=== PATIENT | female | born 1970 | race Caucasian/White ===

== ENCOUNTER 2019-05-16 16:48 | Emergency (ER) | payer BC, SELFPAY ==
[2019-05-16 16:52] VITALS: BP 148/78; PULSE 72; RESP 16; TEMP 36.6; O2SAT 99
--- NOTE | 2019-05-16 17:20 | DI.CT_ITS ---
EXAM: CT HEAD CERVICAL SPINE WO CLINICAL HISTORY: numbness right side of face with remy arm parasthes. TECHNIQUE: Noncontrast enhanced cranial CT was carried out according to the usual protocol. COMPARISON: No exams were available for comparison FINDINGS: There is no evidence of an intra or extra-axial hemorrhage. There is no evidence of a mass. The ve ntricles are intact there is no skull fracture. There is fairly significant mucoperiosteal thickenin g involving the ethmoid air cells and mild sphenoid and moderate frontal sinus involvement is noted. There is no evidence of a mastoid effusion. The soft tissues unremarkable. Summary no acute intracranial is identified. C-spine CT: There is mild lower cervical spondylosis with a mild disc bulge at C5-6 hours for reversa l of the normal cervical lordosis with focal kyphosis at C5-C6 there is no evidence of stenosis there is a mild disc bulge. Soft tissues are unremarkable. Apices are unremarkable. Summary mild mid to lower cervical spondylosis possibly on the basis of muscle spasm or positioning. IMPRESSION:
[2019-05-16] MEDS: Normal Saline 1,000 ML 1000 ML IV (17:37)
[2019-05-16 17:38] VITALS: RESP 16
--- NOTE | 2019-05-16 17:38 | ED.GENADUL_ITS ---
Discharge Plan Disposition Patient Disposition: HOME Condition: Good Discharge Details Chief Complaint: GenMedical Clinical Impression: Sinusitis, Disc disorder Primary Care Provider: Bonifacio Tubbs ED Provider: Carole Valera Home Meds and New Rx's Prescriptions: New doxycycline hyclate 100 mg capsule 100 mg PO BID Qty: 20 RF: 0 Flonase Sensimist 27.5 mcg/actuation spray,suspension 2 spray MATTHEW DAILY Qty: 5.9 RF: 0 No Action ibuprofen 200 MG capsule 200 mg PO DAILY RF: 0 cholecalciferol (vitamin D3) 1,000 UNIT tablet 1,000 unit PO DAILY RF: 0 Daily Multiple 1 EACH tablet 1 ea PO DAILY RF: 0 sulfamethoxazole-trimethoprim 1 TAB tablet 1 tab PO BID RF: 0 Discharge Instructions Instructions: Sinusitis (ED), Cervical Disc Herniation (ED) Additional Instructions: Use Tylenol or ibuprofen for discomfort. Use nasal saline rinses 3 times a day. 5 minutes after morning use the nasal saline rinse use Flonase prescribed. Use antibiotic as prescribed. Have very close follow-up with your primary care doctor as discussed. Your imaging studies reveal sinus inflammation in conjunction with a disc bulge in your neck. Please follow-up closely with her primary care doctor for these findings. As discussed return for any alarming, worsening, concerning or new or changing symptoms if needed sooner. Medical Decision Making Is a very pleasant 48-year-old woman with no significant medical history who presents to the ER for onset of right-sided facial numbness which began this morning at approximately 530. Patient denies associated facial pain. Patient reports in conjunction she has tingling in bilateral arms associated with some radiating pain into the forearms bilaterally. Patient does report intermittent neck pain and has had similar symptoms in her arms for the last several months. Patient was concerned with onset of facial numbness this morning. No associated headache or vision changes. Patient denies any dizziness. Patient does report general malaise and ill feeling with no measured fever. Reports mild fatigue. Denies recent tick bites. Patient denies any rash. No cough or upper r espiratory symptoms associated. On initial exam patient has a very benign neurologic exam. No weakness of the upper extremities. No cerebellar abnormalities as tested on neuro exam. Patient does have a horizontal nystagmus. Patient is afebrile, normal vital signs. 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 Emergency room work-up to include CAT scan of head and neck, labs including Lyme and TSH. Patient agrees with plan of care. Interpretation of EKG; normal axis, rate of 69, sinus rhythm. Reviewed with my attending Dr. Ramon Fox CT ultimately does reveal fairly significant mucoperiosteal thickening involving the ethmoid air cells and mild sphenoid and moderate frontal sinus involvement. No other mass or abnormalities identified on head CT. Patient also was noted to have mild mid and lower spondylolosis as well as a mild disc bulge at C5-6 with reversal of normal cervical lordosis. Focal kyphosis noted at C5-6 level. This is potential to cause patient's radiating pain into her arms. As patient has no obvious neurologic emergency symptoms at this time and symptoms have been ongoing for several months I do feels appropriate to follow-up with outpatient MRI. Regarding patient's right-sided facial numbness given the sinus inflammation noted on exam in conjunction with malaise and fatigue it is likely that patient has sinus infection which she has had in the past and she did report this was an initial concern. We did discuss the possibility of etiology of stroke given patient's right-sided facial numbness however it is very unlikely given her presentation in conjunction with bilateral numbness of the arms. She has no facial asymmetry at this time, clear speech and of benign neuro exam today. We discussed a more extensive evaluation although patient thinks this is unnecessary at this time and would prefer follow-up with her primary care doctor which I agree with. Patient will call for follow-up with PCP on Sunday. Precautions discussed at length. Lyme remains in the differential as cause of her malaise, fatigue and facial numbness, Lyme testing pending she will follow-up with her PCP as an outpatient. Doxycycline will be initiated for coverage of sinusitis as well as coverage of potential Lyme. The patient was stable and requested discharge. Prior to discharge, my usual and customary return precautions were reviewed with the patient - this included follow-up instructions and reasons to return to the Emergency Department if conditions worsens, does not improve as expected, or other new concerns arise. HPI General Date/Time Provider Initiated Documentation: 05/16/19 16:55 . HPI Narrative: Very pleasant 48-year-old patient presents for complaints of right facial numbness. Patient reports onset of symptoms at approximately 530 this morning. Patient felt normal last evening. Patient reports sensation of numbness but does have intact sensation to touch. Patient denies any facial pain or headache. Patient does report a history of migraine but this seems different. Patient does report occasional tingling in the right side of her face when having migraines but typically has associated headache and photophobia neither which she has at this time. Patient is also concerned as she has bilateral arm soreness and tingling. Denies focal weakness. Patient does report occasional neck pain. Patient reports neck pain and bilateral arm sensations for the last few months intermittently. Patient denies any obvious injury or trauma to the neck. 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 Patient is also complaining of malaise and fatigue in the last few days. No measured fever or chills. Eating and drink without difficulty. No upper respiratory symptoms. Denies concern of . No urinary urgency and frequency or dysuria. No bowel changes. Related Data Home Medications Medication Instructions Recorded Confirmed Daily Multiple 1 ea PO DAILY 10/20/15 05/16/19 cholecalciferol (vitamin D3) 1,000 unit PO DAILY 10/20/15 05/16/19 ibuprofen 200 mg PO DAILY 10/20/15 05/16/19 sulfamethoxazole-trimethoprim 1 tab PO BID 10/13/17 10/13/17 doxycycline hyclate 100 mg PO BID #20 cap 05/16/19 fluticasone furoate [Flonase 2 spray MATTHEW DAILY #5.9 ml 05/16/19 Sensimist] Previous Rx's Medication Instructions Recorded doxycycline hyclate 100 mg PO BID #20 cap 05/16/19 fluticasone furoate [Flonase 2 spray MATTHEW DAILY #5.9 ml 05/16/19 Sensimist] Allergies Allergy/AdvReac Type Severity Reaction Status Date / Time Penicillins Allergy Skin Rash Verified 10/13/17 16:56 sulfite Allergy Verified 10/13/17 16:56 food (kale) Allergy Severe Hives Uncoded 10/13/17 16:56 General Stated Complaint: GenMedical LYNDSEY: 2 Review of Systems Review of Systems ROS Unobtainable: All systems reviewed & are unremarkable except as noted in HPI and below Constitutional Constitutional: Denies chills, Reports fatigue, Denies fever(s), Denies headache(s), Reports malaise, Denies night sweats and Denies weakness Eyes Eyes: Denies blurry vision, Denies diplopia, Denies loss of peripheral vision, Denies loss of vision, Denies other visual disturbances and Denies photophobia ENT Ears, Nose, Mouth, and Throat: Denies abnormal hearing, Denies vertigo, Denies dizziness and Denies headache(s) Cardiovascular Cardiovascular: Denies syncope Respiratory Respiratory: Denies cough and Denies wheezing Musculoskeletal Musculoskeletal: Denies abnormal gait and Reports numbness Integumentary/Breasts Skin/Breast: Denies rash Neurologic Neurologic: Denies abnormal hearing, Denies abnormal movements, Denies abnormal speech, Denies abnormal gait, Denies behavioral changes, Denies confusion, Denies vertigo, Denies dizziness, Denies syncope, Denies headache(s), Denies focal weakness, Denies loss of vision, Reports numbness, Reports radicular pain and Denies weakness Psychiatric Psychiatric: Denies behavioral changes and Denies confusion Endocrine Endocrine: Reports fatigue Hematologic/Lymphatic Hematologic/Lymphatic: Denies easy bruising Allergic/Immunologic Allergic/Immunologic: Denies wheezing [facility] Surgical History (Updated 05/09/17 @ 12:59 by Emilee Joseph) Appendectomy (05/03/17) Social History Smoking/Tobacco Use Status: Never Alcohol Intake: current Alcohol Intake frequency: a few times a month Drug use: Never Substance use type: does not use Do you feel safe at home: Yes Do you feel safe in your relationship?: Yes History History Para 2 Hx # Term Pregnancies Multiple births Hx # Pregnancies Ectopic pregnancies AB induced Hx Number of Living Children AB spontaneous Exam Narrative Exam Narrative: CONST: Healthy appearing patient, in no acute distress. Well hydrated. Alert and alert. HENMT: Head nomocephalic, normal to inspection. Atraumatic. Hearing grossly normal. EYES: General normal appearance. Alignment normal. Eyelids normal. Conjunctiva normal. Mild horizontal nystagmus. No peripheral field loss NECK: Normal visual inspection. FROM. Trachea midline. No Midline tenderness. No cervical lymphadenopathy CHEST: Normal insepection of the chest. RESP: Normal respiratory effort. Speaking full sentences. No cough. No audible wheezing. No retractions. CARDIO: No JVD. No murmurs or rubs MUSCULOSKELETAL: Normal Gait. FROM of all extremities. SKIN: Normal. Dry. No rashes. NEURO: Alert and awake. Speech clear. Alert and oriented x 3. Speech is clear. Cranial nerves intact as tested III - XI. Normal Etybts-sr-qahs test. No pronator drift. Normal heel-schroeder test. Gait normal. Strength intact in all extremities. Sensation intact in all extremities. PSYCH: Normal affect. Cooperative. Course Vital Signs Vital signs: Vital Signs Temperature 36.6 C 05/16/19 16:52 Pulse 72 05/16/19 16:52 Respiratory Rate 16 05/16/19 16:52 Blood Pressure 148/78 H 05/16/19 16:52 Pulse Oximetry 99 05/16/19 16:52 Temperature 36.6 C 05/16/19 16:52 Temperature Source Skin 05/16/19 16:52 Pulse 72 05/16/19 16:52 Respiratory Rate 16 05/16/19 16:52 Respiratory Effort Non-Labored 05/16/19 16:55 Blood Pressure 148/78 H 05/16/19 16:52 Blood Pressure Position Sitting 05/16/19 16:52 Pulse Oximetry 99 05/16/19 16:52 Oxygen Delivery Method Room Air 05/16/19 16:52 Oxygen Flow Rate 0 05/16/19 16:52 Pain Level 0 05/16/19 16:52
[2019-05-16 17:42] LABS: Abs Immature Grans 0.01 k/cumm (0.0-0.09); Absolute Basophil Count 0.04 k/cumm (0.0-0.2); Absolute Lymphocyte Count 1.75 k/cumm (1.2-3.4); Absolute Monocyte Count 0.51 k/cumm (0.11-0.7); Absolute Neutrophil Count 5.35 k/cumm (1.2-6.7); Basophils % 0.5; Eosinophils % 2.5; HCT 43.9 % (36.0-46.0); HGB 14.9 g/dL (12.0-15.5); Immature Grans % 0.1; Lymphocytes % 22.3; Mean Corp. HGB Concentration 33.9 g/dL (32.0-36.0); Mean Corpuscular Hemoglobin 31.4 pg (27.0-33.0); Mean Corpuscular Volume 92.4 fL (80-95); Mean Platelet Volume 10.5 fL (8.0-11.0); Monocytes % 6.5; Neutrophils % 68.1; Platelet Count 262 x1000/uL (130-400); RBC 4.75 m/cumm (4.00-5.20); RBC Distribution Width 12.9 % (11.7-14.6); White Blood Cell Count 7.86 k/cumm (4.4-10.8)
[2019-05-16 18:58] LABS: ALT 21 U/L (14-59); AST 16 U/L (15-37); Albumin 3.5 g/dL (3.4-5.0); Alkaline Phosphatase 98 U/L (46-116); Anion Gap 10.5 mmol/L (3-11); BUN 13 mg/dL (7-18); Bilirubin, Total 0.3 mg/dL (0.2-1.0); CO2 24.5 mmol/L (21.0-32.0); CREATININE 0.81 mg/dL (0.55-1.02); Calcium 9.5 mg/dL (8.5-10.1); Chloride 107 mmol/L (98-107); Glucose 79 mg/dL (70-100); Potassium 3.4 mmol/L (3.5-5.1); Sodium 142 mmol/L (136-145); TSH 2.25 uIU/mL (0.36-3.74); Total Protein 7.5 g/dL (6.4-8.2)
--- NOTE | 2019-05-16 18:58 | DI.VRAD_ITS ---
PROCEDURE INFORMATION: Exam: CT Head without contrast Exam date and time: 05/16/2019 5:22 PM Clinical history: 48 years old, female; Numbness / parasthesia; Patient HX: Numbness right side of face and bilateral arm parastheses TECHNIQUE: Imaging protocol: Computed tomography of the head without contrast. COMPARISON: No relevant prior studies available. FINDINGS: Brain: Normal. No hemorrhage. Unremarkable white matter. No mass effect. Ventricles: Normal. No ventriculomegaly. Bones/joints: Unremarkable. No acute fracture. Sinuses: There is fairly significant mucoperiosteal thickening involving the ethmoid air cells with mild sphenoid and moderate frontal sinus involvement. Mastoid air cells: Visualized mastoid air cells are well aerated. Soft tissues: Unremarkable. IMPRESSION: No evidence for acute intracranial abnormality. PROCEDURE INFORMATION: Exam: CT Cervical Spine Without Contrast Exam date and time: 05/16/2019 5:22 PM Clinical history: 48 years old, female; Numbness / parasthesia; Patient HX: Numbness right side of face and bilateral arm parastheses TECHNIQUE: Imaging protocol: Computed tomography images of the cervical spine without contrast. COMPARISON: No relevant prior studies available. FINDINGS: Vertebrae: There is mid to lower cervical spondylosis with mild disc bulge C5-6. There is reversal of the normal cervical lordosis with focal kyphosis at the C5-6 level. There is no evidence for stenosis. There is mild disc bulge. Discs/Spinal canal/Neural foramina: See Vertebrae Finding. Soft tissues: Unremarkable. Lungs: Lung apices are normal. IMPRESSION: Mild mid and lower cervical spondylosis. Possible muscle spasm. COMMENT: Preliminary interpretation is based on receipt of 1963 image(s). A final report will be issued subsequently. Dictated and Authenticated by: Priyanka Tipton MD. Ordering:BARRINGTON Lam MD
[2019-05-16 19:23] VITALS: BP 139/73; PULSE 71; RESP 16; TEMP 37.2; O2SAT 99
--- NOTE | 2019-05-16 19:25 | NUR.NOTE ---
Nursing Note: LATRICE Valera in to discuss discharge plan with pt. IV removed, catheter intact.
[2019-05-16] MEDS: Doxycycline Hyclate 100 MG CAP (19:47)
[2019-05-19 10:15] LABS: Lyme Ab w Rflx to Lyme Confirm Positive
[2019-05-20 22:35] LABS: Anaplasma phagocytophilum Negative (Negative); B. miyamotoi PCR Negative (Negative); Babesia divergens/MO-1 Negative (Negative); Babesia duncani Negative (Negative); Babesia microti Negative (Negative); Ehrlichia chaffeensis Negative (Negative); Ehrlichia ewingii/canis Negative (Negative); Ehrlichia muris eauclairensis Negative (Negative)
[2019-05-21 15:33] LABS: IgG Band(s) SEE COMMENTS kDa; IgG Immunoblot Negative; IgM Band(s) SEE COMMENTS kDa; IgM Immunoblot Negative; Immunoblot Interpretation SEE COMMENTS
== END 2019-05-16 19:50 | disposition home or self-care (01) ==
PROVIDERS: Emergency Provider Physician Assistant; PCP Family Medicine
DX: J01.80 Other acute sinusitis (principal); M50.90 Cervical disc disorder, unspecified, unspecified cervical region
CPT/HCPCS: 36415; 80053; 86617; 87798; 96360; 96361; 99284; 70450; 72125; 84443; 85025; 86618

== ENCOUNTER 2019-10-15 09:55 | Outpatient (REF) | payer BC, SELFPAY ==
[2019-10-16 05:31] LABS: Vitamin D 25 Total 41.2 ng/ml (30-100)
== END 2019-10-15 10:15 ==
LOC: NCHCN 09:55
PROVIDERS: PCP Nurse Practitioner; Visit Provider Nurse Practitioner
DX: Z13.21 Encounter for screening for nutritional disorder (principal)
CPT/HCPCS: 82306

== ENCOUNTER 2020-04-25 17:18 | Emergency (ER) | payer BC, SELFPAY ==
[2020-04-25 17:24] VITALS: BP 155/99; PULSE 85; RESP 20; TEMP 36.3; O2SAT 99
--- NOTE | 2020-04-25 17:47 | ED.GENADUL_ITS ---
Discharge Plan Disposition Patient Disposition: HOME Condition: Good Discharge Details Clinical Impression: Contusion of right thigh Primary Care Provider: Sudha Crespo ED Provider: Saul Romero Home Meds and New Rx's Prescriptions: Continued ibuprofen 200 MG capsule 200 mg PO DAILY RF: 0 Daily Multiple 1 EACH tablet 1 ea PO DAILY RF: 0 Discharge Instructions Instructions: Contusion in Adults (ED) Additional Instructions: At this time there is no evidence of hematoma in your thigh or your hip. Your symptoms are inconsistent with a fracture currently. Please Artie wrap the area to help keep down swelling, you can take 1000 mg of Tylenol every 6 hours and 800 mg of ibuprofen every 6 hours as needed for pain. Please continue to ice it tonight and tomorrow morning. And then transition to using heat/warmth. Use the crutches to help give your leg a break. It will be notably sore for the next week. If you notice any large mass, worsening pain or lack of improvement of pain over the next week please return immediately for reassessment. If you notice any worsening of your symptoms, or any new symptoms such as vomiting, diarrhea, fever, chills, shortness of breath, chest pain, numbness, weakness, or fainting , please return immediately to the emergency department for reevaluation. Please follow up with your primary care provider as soon as possible for reassessment and reevaluation. As always, it was a pleasure participating in your medical care today. Referrals: Sudha Crespo [Primary Care Provider] - Medical Decision Making 49-year-old female with no significant past medical history presents today for evaluation of contusion to the right thigh. The patient states that 1 hour ago she was working at her house when 6 sheets of sheet rock fell and hit her right thigh, and then slid down them. She was not trapped under the sheet rock, she was able to get out immediately. She immediately put Arnica on it and ice. She denies any other associated numbness or tingling. No significant pain with ambulation. She did not fall hit her head or have trauma to any other component. No other complaints at this time. No other modifying factors. Physical exam demonstrates no evidence of significant hematoma, decrease in str ength, lack of sensation or signs of trauma to the knee or femur. She has 5 out of 5 strength for flexion and extension at the knee and hip. Bedside limited ultrasound shows no evidence of fluid collection hematoma or other concerning abnormality. With good strength and sensation, no evidence of significant tenderness signs were small component of the distal tenderness at the rectus femoris and no bony tenderness no pain with ambulating I see no indication for radiographic imaging at this time. I did discuss x-ray options with the patient, she agrees on holding off of the time being. At this time signs and symptoms are clinically consistent with contusion, and inconsistent with hematoma or osseous fracture. Will give instructions for Tylenol, Motrin, Artie wrap, ice and crutches. Discussed red flags which to return. I have extensively reviewed the treatment plan and discharge instructions with the patient. I have addressed all patient concerns at this time. The patient was made aware of what symptoms to monitor for that would warrant a return to the emergency department. Discussed the plan with the patient, they demonstrate verbal understanding and agreement with our assessment and plan at this time. HPI General Date/Time Provider Initiated Documentation: 04/25/20 17:30 . HPI Narrative: 49-year-old female with no significant past medical history presents today for evaluation of contusion to the right thigh. The patient states that 1 hour ago she was working at her house when 6 sheets of sheet rock fell and hit her right thigh, and then slid down them. She was not trapped under the sheet rock, she was able to get out immediately. She immediately put Arnica on it and ice. She denies any other associated numbness or tingling. No significant pain with ambulation. She did not fall hit her head or have trauma to any other component. No other complaints at this time. No other modifying factors. Related Data Home Medications Medication Instructions Recorded Confirmed Daily Multiple 1 ea PO DAILY 10/20/15 04/25/20 ibuprofen 200 mg PO DAILY 10/20/15 04/25/20 Allergies Allergy/AdvReac Type Severity Reaction Status Date / Time Penicillins Allergy Skin Rash Verified 04/25/20 17:26 sulfite Allergy Verified 04/25/20 17:26 food (kale) Allergy Severe Hives Uncoded 04/25/20 17:26 General Stated Complaint: Orthopedic LYNDSEY: 4 Review of Systems All systems reviewed & are unremarkable except as noted in HPI and below [facility] Surgical History Appendectomy (05/03/17) Social History Smoking/Tobacco Use Status: Never Alcohol Intake: current Alcohol Intake frequency: a few times a month Drug use: Never Substance use type: does not use Do you feel safe at home: Yes Do you feel safe in your relationship?: Yes History History Para 2 Hx # Term Pregnancies Multiple births Hx # Pregnancies Ectopic pregnancies AB induced Hx Number of Living Children AB spontaneous Exam Narrative Exam Narrative: 1.Const: Well-nourished, Well-developed, appearing stated age 2.Eyes: PERRL, no conjunctival injection, and symmetrical lids. 3.ENT: Atraumatic external nose and ears. Moist MM. Neck: Symmetric, trachea midline, No thyromegaly. 4.CVS: +S1/S2, No murmurs or gallops. Peripheral pulses 2+ and equal in all extremities. Brisk capillary refill in all extremities. 5.RESP: Unlabored respiratory effort. Clear to auscultation bilaterally. No wheezes rales or rhonchi 6.GI: Soft, Nontender/Nondistended, No hepatosplenomegaly. No guarding or rebound. 7.MSK: Normocephalic, Extremities w/o deformity. No cyanosis or clubbing, Normal movement of all extremities. Patient's right thigh demonstrates mild tenderness at the mid distal aspect of the rectus femoris. No evidence of significant swelling hematoma or mass. No tenderness to the lateral aspects of the thigh whatsoever. Bedside limited ultrasound demonstrates no evidence of large fluid collection, large hematoma, or other abnormality. The knee is stable to varus, valgus, and anterior drawer stress. No deformity. Patellar grind test is negative. Conrad test is negative for pain. Patient is able to walk without difficulty. No edema or warmth to the joint. No ttp to the patella, tibial plateau, or fibular head. Patient demonstrates 5 out of 5 strength for flexion and extension of the knee, as well as flexion and extension of the hip. 8.Skin: Warm, Dry. No rashes or lesions. 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 Sensation grossly intact, no focal neurologic deficits. 10.Psych: (AAO) x3. Appropriate mood and affect Course Vital Signs Vital signs: Vital Signs Temperature 36.3 C L 04/25/20 17:24 Pulse 85 04/25/20 17:24 Respiratory Rate 20 04/25/20 17:24 Blood Pressure 155/99 H 04/25/20 17:24 Pulse Oximetry 99 04/25/20 17:24 Temperature 36.3 C L 04/25/20 17:24 Temperature Source Skin 04/25/20 17:24 Pulse 85 04/25/20 17:24 Respiratory Rate 20 04/25/20 17:24 Respiratory Effort Non-Labored 04/25/20 17:28 Blood Pressure 155/99 H 04/25/20 17:24 Blood Pressure Position Sitting 04/25/20 17:24 Pulse Oximetry 99 04/25/20 17:24 Oxygen Delivery Method Room Air 04/25/20 17:24 Oxygen Flow Rate 0 04/25/20 17:24 Pain Level 1 04/25/20 17:24
== END 2020-04-25 18:04 | disposition home or self-care (01) ==
LOC: ER 18:51
PROVIDERS: Emergency Provider Student in an Organized Health Care Education/Training Program; PCP Nurse Practitioner
DX: S70.11XA Contusion of right thigh, initial encounter (principal); W20.8XXA Other cause of strike by thrown, projected or falling object, initial encounter
CPT/HCPCS: 99283; E0114

== ENCOUNTER 2021-12-25 16:02 | Emergency (ER) | payer BC, SELFPAY ==
[2021-12-25 16:12] VITALS: BP 140/81; PULSE 74; RESP 14; TEMP 36.2; O2SAT 97
--- NOTE | 2021-12-25 16:30 | DI.CT_ITS ---
Exam(s) CT ABDOMEN PELVIS WO EXAM: CT ABDOMEN PELVIS WO CLINICAL HISTORY: LUQ abd pain. TECHNIQUE: Imaging Protocol: Axial computed tomography images with coronal and sagittal reformatted images were created and reviewed CONTRAST MATERIAL: Intravenous: none Oral: None COMPARISON: CT ABD PELVIS WITH CONTRAST from 05/03/2017 FINDINGS: VISUALIZED LUNG BASES: No nodules nor pleural effusions evident. ABDOMEN: There is no ascites. LIVER: There is a 1 centimeter cyst in the upper aspect left hepatic lobe which is unchanged from 201 7. No other focal findings in the liver evident on this noninfused study. Liver size is normal. GALLBLADDER/BILIARY: No obvious gallbladder pathology. CBD is not dilated. PANCREAS: No evidence of pancreatic mass nor dilatation of the pancreatic duct. SPLEEN: Spleen size normal. No intrasplenic lesions. Small splenule medial to the spleen is unchang ed from 2017. ADRENALS: There are no significant adrenal masses. KIDNEYS:No cysts evident. No solid renal masses. No calculi nor hydronephrosis. . ABDOMINAL AORTA: Abdominal aorta is not enlarged. LYMPH NODES: There is no retroperitoneal nor paraaortic adenopathy. ABDOMINAL WALL: No evidence of significant anterior abdominal wall nor inguinal hernia. GI: There is no evidence of bowel obstruction, free air, nor abscess. PELVIS: LYMPH NODES: There is no intrapelvic nor inguinal adenopathy. GI: The appendix is surgically absent.No evidence of significant sigmoid diverticular disease. URINARY BLADDER: No calculi nor obvious masses evident REPRODUCTIVE: Surgical clips are seen on the posterior myometrium of the uterus. OSSEOUS: No significant osseous lesions. No fractures. IMPRESSION: 1. Compared to 05/03/2017 there has been interval appendectomy. No evidence of bowel obstruction nor abscess. No free fluid. 2. Again noted are surgical clips associated with the posterior wall of the uterus adjacent to the ur inary bladder. No obvious abnormality in the bladder. No abnormal adnexal findings. 3. Stable 1 cm cyst in the left hepatic lobe, unchanged from 2017. No new focal hepatic lesions evid ent on this noninfused study. RADIATION DOSE DELIVERED: 920mGy.cm Total DLP DATA REPOSITORY: All CT scans at this facility are submitted to the National Radiology Data Registry (NRDR) Dose Index Registry (DIR) with the [employer] (A[employer]). RADIATION OPTIMIZATION: All CT scans at this facility use at least one of these dose optimization te chniques: automated exposure control; mA and/or kV adjustment per patient size (includes targeted exa ms where dose is matched to clinical indication); or iterative reconstruction.
--- NOTE | 2021-12-25 16:31 | ED.GENADUL_ITS ---
Discharge Plan Disposition Patient Disposition: HOME Condition: Stable Discharge Details Clinical Impression: Localized swelling of left lower extremity, Abdominal pain Primary Care Provider: Marian Hardin ED Provider: Yesenia Muniz Home Meds and New Rx's Prescriptions: Continued ibuprofen 200 MG capsule 400 mg PO DAILY PRN Daily Multiple 1 EACH tablet 1 ea PO DAILY Discharge Instructions Instructions: Leg Edema (ED), Abdominal Pain (ED) Additional Instructions: Please return as directed by diagnostic imaging for an ultrasound. You may return to the ER for results. Keep your leg elevated is much as possible. CT shows no evidence for obstruction or infection no acute abnormality at this time. Lab work is all largely within normal limits. Follow up with primary care provider in 3-5 days. Return to ED sooner if any worsening or concerns. Increase oral fluids. Please take Tylenol or Ibuprofen with food every 4-6 hours as needed for pain and swelling. Referrals: Marian Hardin [Primary Care Provider] - 5 days Discharge Data Discharge Date/Time-TO BE ENTERED AT DEPARTURE: 12/25/21 18:14 Medical Decision Making 51-year-old female presents to the ER with chief complaint of left lower extremity swelling and tingling which began yesterday and has since somewhat resolved. She reports she still does have some tingling in the extremity. She denies any known injuries. Patient is also complaining of some left upper quadrant abdominal pain. At this time work-up ordered including CBC, CMP, D-dimer, urinalysis IV normal saline [address] abdomen pelvis without contrast. Differential diagnosis includes but not limited to DVT, transient edema, bug bite, constipation, gastroenteritis, bowel obstruction I did discuss limited ultrasound availability at this time. Will order ultrasound as an outpatient have patient return for the results tomorrow. She verbalizes understanding and is in agreement with the plan. CBC within normal limits, D-dimer 334 which is within normal limits CMP largely within normal limits. Magnesium slightly high at 2.8 lipase within normal limits urinalysis shows no evidence for urinary tract infection no leukocytes no nitrites. CT results noted below. Small hiatal hernia no acute abnormality noted. Will discuss follow-up for outpatient ultrasound with patient to return tomorrow with and discharge instructions. This text was generated using avVentaation system, please disregard any oddities of phrase or misspellings. Imaging Data Radiologic Study: Imaging: CT Scan Radiologist's impression: COMPARISON: CT ABD PELVIS WITH CONTRAST 05/03/2017 11:38 AM FINDINGS: Liver: Small left lobe low-density hepatic lesion again seen consistent with c yst. New lines small hiatal hernia. Gallbladder and bile ducts: Gallbladder partially contracted. Pancreas: Normal. No ductal dilation. Spleen: Normal. No splenomegaly. Adrenal glands: Normal. No mass. Kidneys and ureters: Normal. No hydronephrosis. Stomach and bowel: Unremarkable. No obstruction. No mucosal thickening. Appendix: Appendix surgically absent. Intraperitoneal space: Unremarkable. No free air. No significant fluid collection. Vasculature: Unremarkable. No abdominal aortic aneurysm. Lymph nodes: Unremarkable. No enlarged lymph nodes. Urinary bladder: See Reproductive finding. Reproductive: There is some postsurgical change with the uterus straight over the bladder, possible pexy. Clinical correlation requested. Uterine appearances are otherwise unremarkable. Bladder within normal limits. Bones/joints: Unremarkable. No acute fracture. Soft tissues: Unremarkable. IMPRESSION: No acute abnormality seen to account for symptoms. Thank you for allowing us to participate in the care of your patient. Dictated and Authenticated by: Priyanka Tipton MD [facility] General Mode of arrival: ambulatory . Date/Time Provider Initiated Documentation: 12/25/21 16:16 . Limitations to Documentation: no limitations . Information obtained by: patient, RN notes reviewed and old records reviewed . HPI Narrative: 51-year-old female presents to the ER with chief complaint of left lower extremity swelling and tingling which began yesterday and has since somewhat resolved. She reports she still does have some tingling in the extremity. She denies any known injuries. She reports that she was sitting at a cabin when her foot started swelling. She also reports that her noted some discoloration in the bottom of her foot. She also endorses some left upper quadrant abdominal pain, constipation x2 days and just overall not feeling well. She denies any nausea vomiting diarrhea no fever chills no chest pain or shortness of breath. Surgical history includes appendectomy, she is postmenopausal. She denies any recent long trips in a car plane, she does not take control and is not a smoker. Related Data Home Medications Medication Instructions Recorded Confirmed ibuprofen 200 mg capsule 400 mg PO DAILY PRN 10/20/15 12/25/21 multivitamin-ferrous 1 ea PO DAILY 10/20/15 12/25/21 fumarate-folic acid 18 mg-400 mcg tablet (Daily Multiple) Allergies Allergy/AdvReac Type Severity Reaction Status Date / Time Penicillins Allergy Skin Rash Verified 12/25/21 16:15 sulfite Allergy Verified 12/25/21 16:15 food (kale) Allergy Severe Hives Uncoded 12/25/21 16:15 General Stated Complaint: Orthopedic LYNDSEY: 3 Review of Systems All systems reviewed & are unremarkable except as noted in HPI and below Constitutional Constitutional: Reports as per HPI Cardiovascular Cardiovascular: Denies chest pain and Denies dyspnea Respiratory Respiratory: Denies dyspnea Gastrointestinal Gastrointestinal: Reports abdominal pain (Intermittent), Reports change in bowel habits, Reports constipation, Denies diarrhea, Denies nausea and Denies vomiting Genitourinary Genitourinary: Denies difficulty voiding and Denies dysuria Musculoskeletal Musculoskeletal: Reports as per HPI, Reports tingling and Reports other (Swelling, since resolved) Neurologic Neurologic: Reports tingling PFSH All Active Problems (Updated 12/25/21 @ 18:03 by Yesenia Muniz) Acute appendicitis with localized peritonitis (Acute) Localized swelling of left lower extremity (Acute) Abdominal pain (Acute) Surgical History Appendectomy (05/03/17) Social History Smoking/Tobacco Use Status: Never Smoking risk assessment performed?: Yes Alcohol Intake: current Alcohol Intake frequency: a few times a month Drug use: Never Substance use type: does not use Do you feel safe at home: Yes Do you feel safe in your relationship?: Yes History History Para 2 Hx # Term Pregnancies Multiple births Hx # Pregnancies Ectopic pregnancies AB induced Hx Number of Living Children AB spontaneous Exam Narrative Exam Narrative: Constitutional: Alert and oriented x3. Appears stated age. Normal body habitus. Head: Normocephalic, no trauma. Eyes: Pupils PERRL, Red reflex noted, EOM's intact. Eyelids symmetrical without lesions, discharge, or swelling. ENT: Bilateral TM's WNL, External ear normal to inspection, no mastoid TTP, swelling, or erythema, Nasal turbinates WNL, no nasal discharge. Normal dentition, Posterior pharynx WNL, no exudate. Chest: RRR, Normal S1, S2, distal pulses intact. Resp: Lungs clear to auscultation bilaterally, no wheezes, rales, or rhonchi. Abdomen: Soft, non-distended, Normoactive bowel sounds all 4 quads. Musculoskeletal: Normal gait, 5/5 strength to all four extremities. Negative Homans' sign, no significant swelling or erythema noted to her left calf or foot. No wounds or deformity noted. Skin: No suspicious rashes or lesions. Capillary refill less than 2 sec. Neurologic: Cranial nerves II-XII intact. Alert and oriented x 3. Motor: No deficits noted. Sensory: Intact bilaterally all 4 extremities. Reflexes: DTR's intact bilaterally.. Hematologic/Lymphatic: No ecchymosis, no lymphadenopathy. Course Vital Signs Vital signs: Vital Signs Temperature 36.2 C L 12/25/21 16:12 Pulse 74 12/25/21 16:12 Respiratory Rate 14 12/25/21 16:12 Blood Pressure 140/81 12/25/21 16:12 Pulse Oximetry 97 12/25/21 16:12 Temperature 36.2 C L 12/25/21 16:12 Temperature Source Skin 12/25/21 16:12 Pulse 74 12/25/21 16:12 Respiratory Rate 14 12/25/21 16:12 Respiratory Effort 12/25/21 16:16 Blood Pressure 140/81 12/25/21 16:12 Blood Pressure Position Sitting 12/25/21 16:12 Pulse Oximetry 97 12/25/21 16:12 Oxygen Delivery Method Room Air 12/25/21 16:12 Oxygen Flow Rate 0 12/25/21 16:12 Pain Level 1 12/25/21 16:12
--- NOTE | 2021-12-25 16:50 | NUR.NOTE ---
Faxed to [facility] a request for LLE venous doppler US; left lower extremity tingling and swelling to be done LAURITA and follow up in the ED. Qing Ramon
[2021-12-25] MEDS: Normal Saline 1,000 ML 1000 ML IV (16:52)
[2021-12-25 16:54] LABS: Abs Immature Grans 0.01 10^3/uL (0.0-0.06); Absolute Basophil Count 0.04 10^3/uL (0.0-0.2); Absolute Eosinophil Count 0.07 10^3/uL (0.0-0.7); Absolute Lymphocyte Count 1.06 10^3/uL (1.2-3.4); Absolute Monocyte Count 0.32 10^3/uL (0.1-0.8); Absolute Neutrophil Count 4.96 10^3/uL (1.2-6.7); Basophils % 0.6; Eosinophils % 1.1; HCT 42.1 % (36.0-46.0); HGB 13.5 g/dL (11.2-15.7); Immature Grans % 0.2; Lymphocytes % 16.4; MCH 29.7 pg (27.0-33.0); MCHC 32.1 % (32.0-36.0); MCV 93 fL (80-95); MPV 10.5 fL (8.0-11.0); Neutrophils % 76.7; Platelet Count 246 10^3/uL (130-400); RBC 4.55 10^6/uL (3.93-5.22); RDW 12.5 % (11.7-14.6); RDW-SD 42.4 fL; WBC 6.46 10^3/uL (4.4-10.8)
[2021-12-25 17:07] LABS: ALT 23 U/L (14-59); AST 17 U/L (15-37); Albumin 3.8 g/dL (3.4-5.0); Alkaline Phosphatase 136 U/L (46-116); Anion Gap 5.6 mmol/L (3-11); BUN 13 mg/dL (7-18); Bilirubin, Total 0.4 mg/dL (0.2-1.0); CO2 27.4 mmol/L (21.0-32.0); CREATININE 0.8 mg/dL (0.55-1.02); Chloride 108 mmol/L (98-107); Glucose 98 mg/dL (74-106); Lipase 92 U/L (73-393); Magnesium 2.8 mg/dL (1.8-2.4); Potassium 3.9 mmol/L (3.5-5.1); Sodium 141 mmol/L (136-145); Total Protein 7.4 g/dL (6.4-8.2)
[2021-12-25 17:24] LABS: D-Dimer 334 ng/mlFEU (<500)
[2021-12-25 17:28] LABS: Bilirubin Negative (Negative); Blood Negative (Negative); Clarity Sl Cloudy (Clear); Glucose Negative (Negative); Ketones Negative (Negative); Leukocyte Esterase Negative (Negative); Nitrite Negative (Negative); Specific Gravity 1.015 (1.005-1.025); Urobilinogen 0.2 EU/dL (Up TO 0.2); pH 6.5 (5-8)
--- NOTE | 2021-12-25 17:56 | DI.VRAD_ITS ---
PROCEDURE INFORMATION: Exam: CT Abdomen And Pelvis Without Contrast Exam date and time: 12/25/2021 5:09 PM Age: 51 years old Clinical indication: Other: Luq abd pain TECHNIQUE: Imaging protocol: Computed tomography of the abdomen and pelvis without contrast. COMPARISON: CT ABD PELVIS WITH CONTRAST 05/03/2017 11:38 AM FINDINGS: Liver: Small left lobe low-density hepatic lesion again seen consistent with cyst. New lines small hiatal hernia. Gallbladder and bile ducts: Gallbladder partially contracted. Pancreas: Normal. No ductal dilation. Spleen: Normal. No splenomegaly. Adrenal glands: Normal. No mass. Kidneys and ureters: Normal. No hydronephrosis. Stomach and bowel: Unremarkable. No obstruction. No mucosal thickening. Appendix: Appendix surgically absent. Intraperitoneal space: Unremarkable. No free air. No significant fluid collection. Vasculature: Unremarkable. No abdominal aortic aneurysm. Lymph nodes: Unremarkable. No enlarged lymph nodes. Urinary bladder: See Reproductive finding. Reproductive: There is some postsurgical change with the uterus straight over the bladder, possible pexy. Clinical correlation requested. Uterine appearances are otherwise unremarkable. Bladder within normal limits. Bones/joints: Unremarkable. No acute fracture. Soft tissues: Unremarkable. IMPRESSION: No acute abnormality seen to account for symptoms. Dictated and Authenticated by: Priyanka Tipton MD. Ordering:MED Patterson MD
== END 2021-12-25 18:14 | disposition home or self-care (01) ==
PROVIDERS: Emergency Provider Registered Nurse Emergency; PCP Nurse Practitioner Family
DX: R22.42 Localized swelling, mass and lump, left lower limb (principal); R10.12 Left upper quadrant pain
CPT/HCPCS: 36415; 80053; 83690; 96360; 99284; 74176; 81003; 83735; 85025; 85379

== ENCOUNTER 2021-12-27 10:24 | Emergency (ER) | payer BC, SELFPAY ==
--- NOTE | 2021-12-27 10:35 | ED.GENADUL_ITS ---
Discharge Plan Disposition Patient Disposition: HOME Condition: Stable Discharge Details Clinical Impression: Leg swelling Primary Care Provider: Marian Hardin ED Provider: Yesenia Muniz Home Meds and New Rx's Prescriptions: No Action ibuprofen 200 MG capsule 400 mg PO DAILY PRN Daily Multiple 1 EACH tablet 1 ea PO DAILY Discharge Instructions Instructions: Edema (ED) Additional Instructions: The Ultrasound is negative for DVT or blood clot. Please Follow up with your Primary care Provider. Continue to elevate your leg as needed. Referrals: Marian Hardin [Primary Care Provider] - 1 week Medical Decision Making US RLE: FINDINGS: There is no evidence of intraluminal thrombus and there is normal compression and augmentation demonstrated within the common femoral vein, femoral vein, and popliteal vein. In the ipsilateral calf the interrogated veins also exhibit normal compression/ augmentation properties. The ipsilateral saphenofemoral junction is patent. IMPRESSION: 1. No evidence of DVT in the RIGHT lower extremity. Discussed results with patient verbalized understanding. Discussed home care and follow-up with PCP. Patient discharged in hemodynamically stable condition. This text was generated using SCREEMOation system, please disregard any oddities of phrase or misspellings. HPI General Mode of arrival: ambulatory . Date/Time Provider Initiated Documentation: 12/27/21 10:31 . Limitations to Documentation: no limitations . Information obtained by: patient and old records reviewed . HPI Narrative: Patient was seen in ED by myself on December 25, 2021 for left lower extremity swe lling and tingling which had resolved upon arrival. She returns today for results of ultrasound which are negative for DVT. Patient reports last night she had some cramping in her left calf denies any additional swelling or any other complaints. Did discuss results with her she verbalizes understanding. Discussed home care to increase fluids and follow-up with PCP. Related Data Home Medications Medication Instructions Recorded Confirmed ibuprofen 200 mg capsule 400 mg PO DAILY PRN 10/20/15 12/25/21 multivitamin-ferrous 1 ea PO DAILY 10/20/15 12/25/21 fumarate-folic acid 18 mg-400 mcg tablet (Daily Multiple) Allergies Allergy/AdvReac Type Severity Reaction Status Date / Time Penicillins Allergy Skin Rash Verified 12/25/21 16:15 sulfite Allergy Verified 12/25/21 16:15 food (kale) Allergy Severe Hives Uncoded 12/25/21 16:15 General LYNDSEY: 3 Review of Systems All systems reviewed & are unremarkable except as noted in HPI and below PFSH All Active Problems (Updated 12/27/21 @ 10:32 by Yesenia Muniz) Acute appendicitis with localized peritonitis (Acute) Localized swelling of left lower extremity (Acute) Abdominal pain (Acute) Leg swelling (Acute) Surgical History Appendectomy (05/03/17) Social History Smoking/Tobacco Use Status: Never Smoking risk assessment performed?: Yes Alcohol Intake: current Alcohol Intake frequency: a few times a month Drug use: Never Substance use type: does not use Do you feel safe at home: Yes Do you feel safe in your relationship?: Yes History History Para 2 Hx # Term Pregnancies Multiple births Hx # Pregnancies Ectopic pregnancies AB induced Hx Number of Living Children AB spontaneous Exam Narrative Exam Narrative: Constitutional: Alert and oriented x3. Appears stated age. Normal body habitus. Head: Normocephalic, no trauma. Musculoskeletal: Normal gait, 5/5 strength to all four extremities. Skin: No suspicious rashes or lesions. Capillary refill less than 2 sec. Neurologic: Cranial nerves II-XII intact. Alert and oriented x 3. Motor: No deficits noted. Sensory: Intact bilaterally all 4 extremities. Reflexes: DTR's intact bilaterally.. Hematologic/Lymphatic: No ecchymosis, no lymphadenopathy.
== END 2021-12-27 11:10 | disposition home or self-care (01) ==
PROVIDERS: Emergency Provider Registered Nurse Emergency; PCP Nurse Practitioner Family
DX: R22.42 Localized swelling, mass and lump, left lower limb (principal)

== ENCOUNTER 2022-01-23 16:32 | Outpatient (REF) | payer BC, SELFPAY ==
[2022-01-23 17:40] LABS: HCT 41.3 % (36.0-46.0); HGB 13.4 g/dL (11.2-15.7); MCH 29.8 pg (27.0-33.0); MCHC 32.4 % (32.0-36.0); MCV 92 fL (80-95); MPV 11.4 fL (8.0-11.0); Platelet Count 235 10^3/uL (130-400); RBC 4.49 10^6/uL (3.93-5.22); RDW 12.9 % (11.7-14.6); RDW-SD 43.6 fL; WBC 4.47 10^3/uL (4.4-10.8)
[2022-01-23 17:43] LABS: ESR 22 mm/hr (0-20)
[2022-01-23 18:57] LABS: Hemoglobin A1C 5.8 % (<5.7)
[2022-01-23 19:16] LABS: ALT 27 U/L (14-59); AST 19 U/L (15-37); Alkaline Phosphatase 122 U/L (46-116); Anion Gap 9.6 mmol/L (3-11); BUN 13 mg/dL (7-18); Bilirubin, Total 0.5 mg/dL (0.2-1.0); CO2 24.4 mmol/L (21.0-32.0); CREATININE 0.8 mg/dL (0.55-1.02); Calcium 10.3 mg/dL (8.5-10.1); Chloride 108 mmol/L (98-107); Folate 14.3 ng/mL (8.6-20.0); Glucose 93 mg/dL (74-106); Potassium 4.2 mmol/L (3.5-5.1); Sodium 142 mmol/L (136-145); TSH (W/Ref FT4) 2.39 uIU/mL (0.36-3.74); Total Protein 7.7 g/dL (6.4-8.2); Vitamin B12 563 pg/mL (193-986)
[2022-01-25 10:26] LABS: Hepatitis C Ab w Rflx HCV PCR Negative (Negative)
[2022-01-25 10:34] LABS: HIV-1/2 Ag & Ab Screen Negative (Negative)
== END 2022-01-23 16:33 | disposition home or self-care (01) ==
LOC: NCHCN 16:32
PROVIDERS: PCP Nurse Practitioner Family; Visit Provider Nurse Practitioner Family
DX: R20.2 Paresthesia of skin (principal); R74.8 Abnormal levels of other serum enzymes; Z11.59 Encounter for screening for other viral diseases; Z11.4 Encounter for screening for human immunodeficiency virus [HIV]; R73.09 Other abnormal glucose
CPT/HCPCS: 80053; 85027; 85652; 86803; 87389; 82607; 82746; 83036; 84443; 86140

== ENCOUNTER 2022-01-23 16:47 | Outpatient (REF) | payer BC, SELFPAY | END 2022-01-23 16:48 | disposition home or self-care (01) | LOC: NCHCN 16:47 | PROVIDERS: PCP Nurse Practitioner Family; Visit Provider Nurse Practitioner Family ==

== ENCOUNTER 2022-03-13 11:22 | Outpatient (REF) | payer BC, SELFPAY ==
[2022-03-13 15:24] LABS: Alkaline Phosphatase 114 U/L (46-116); Calcium 10.5 mg/dL (8.5-10.1); FREE T4 1.01 ng/dL (0.76-1.46)
[2022-03-13 15:35] LABS: T4 8.6 ug/mL (4.7-13.3)
== END 2022-03-13 11:23 | disposition home or self-care (01) ==
LOC: LBN 11:22
PROVIDERS: Visit Provider Nurse Practitioner Family
DX: R74.8 Abnormal levels of other serum enzymes (principal); E83.52 Hypercalcemia; L65.9 Nonscarring hair loss, unspecified
CPT/HCPCS: 82310; 84075; 84436; 84439

== ENCOUNTER → 2022-03-22 01:37 | Outpatient (CLI) | payer BC, SELFPAY ==
--- OUTSIDE RECORDS SUMMARY | 2022-03-01 00:32 | XMS_ITS | Encounter Summary ---
:1970 Author Organization [facility] Address [facility] [place] [address] Care Team Providers Name Role Phone HeavendarronSudha oneal APRN Primary Care Provider Reason for Visit Reason Comments Follow-up F/U to PT Encounter Details Date Type Department Care Team Description 06/03/2021 [facility] Dann Guzman dd, MD Myofascial pain; at [facility] Cervical spondylosis [facility] [place] [address] [place] [address] [phone] Social History Tobacco Use Types Packs/Day Years Used Date Never Smoker Smokeless Tobacco: Never Used Alcohol Use Standard Drinks/Week Comments Yes 2.5 (1 standard drink = 0.6 oz pure alco hol) glass wine Alcohol Habits Answer Date Recorded How often do you have a drink containing alcohol? Not asked How many drinks containing alcohol do you have on a typical Not asked day when you are drinking? How often do you have six or more drinks on one occasion? No t asked Comment: glass wine 06/30/2014 Sex Assigned at Date Recorded Not on file documented as of this encounter Last Filed Vital Signs Vital Sign Reading Time Taken Comments Blood Pressure 116/60 06/03/2021 3:53 PM EDT Pulse 64 06/03/2021 3:53 PM EDT Temperature - - Respiratory Rate - - Oxygen Saturation - - Inhaled Oxygen Concentration - - Weight 70.3 kg (155 lb) 06/03/2021 3:53 PM EDT Height 157.5 cm (5' 2) 06/03/2021 3:53 PM EDT Body Mass Index 28.35 06/03/2021 3:53 PM EDT documented in this encounter Progress Notes Alan Guzman MD - 06/03/2021 4:00 PM EDT Interim history: The patient returns for the first time since the visit of 02/22/2021. She canceled multiple follow-upappointments here since that time. She has been attending outpatient physical therapy at a facility connected with [facility]. She has been feeling much better and no longer experiences stabbing pain in the neck and upper thoracic region. She reports improved upper extremity strength and notes that she is no longer fearful of neck range of motion. She is transitioning to acommunity-based gym program. The patient has no pain at present. Recent symptoms have been limited to subjective pressure in the left upper trapezius. She reports no upper extremity pain radiation and no pain with shoulder range of motion. The patient finds that neck retraction exercises, in particular, have been most helpful in controlling her symptoms. Objective: BP 116/60 Pulse 64 Ht 157.5 cm (5' 2) Wt 70.3 kg (155 lb) BMI 28.35 kg/m?? The patient is seated comfortably and in no apparent distress. No pain behaviors are observed duringtoday's evaluation. Gait is normal. Neck is markedly protracted. Active cervical flexion 30 degrees, extension 60 degrees. There is no pain with cervical range of motion. Active range of motion of the shoulders is within normal limits and is painless. Neck is nontender to palpation. There is tenderness over left upper trapezius. No tenderness is appreciated throughout parascapular musculature. Motor: Right lower traps 4-4+/5. Upper extremity motor examination otherwise 5/5 throughout. Sensation: Intact to light touch throughout the upper extremities. Muscle stretch reflexes: 2+ bilaterally for biceps, triceps and brachioradialis. Assessment: Encounter Diagnoses Name Primary? Myofascial pain ??? Cervical spondylosis The patient is responding very well to outpatient PT treatment. She reports a marked reduction in pain. She demonstrates slowly improving body/postural awareness. The home exercise program has been effective in helping her to manage her chronic pain symptoms. I have encouraged the patient to continue the current treatment program. I anticipate a transition to the home exercise program over the next few weeks to allow for consolidation of the home program. The patient will follow up here on an as-needed basis. Should axial neck pain symptoms recur and increase over time, consideration can be given to diagnostic cervical medial branch blocks/RFA. Plan: 1. Continue PT treatment. 2. Follow-up here as needed. Alan Guzman MD, MS 06/03/2021 documented in this encounter Plan of Treatment Not on filedocumented as of this encounter Visit Diagnoses Diagnosis Myofascial pain Mylagia and myositis, unspecified Cervical spondylosis Cervical spondylosis without myelopathy documented in this encounter Care Teams Sole Assessor Relationship Specialty Start Date End Date Sudha Crespo APRN PCP - General Family Medicine 07/18/17 [place] [address] documented as of this encounter
--- OUTSIDE RECORDS SUMMARY | 2022-03-01 00:32 | XMS_ITS | Encounter Summary ---
:1970 Author Organization [facility] Address [address] [facility] [address] [place] [address] Care Team Providers Name Role Phone Sudha Crespo APRN Primary Care Provider Encounter Details Date Type Department Care Team Description 02/22/2021 [place] [facility] [place]zman, Cervicalgia; [address] [facility] [address] [place] Cervical spondylosis [facility] [id number] [place] [phone] [place] [id number] Social History Tobacco Use Types Packs/Day Years [...] on file documented as of this encounter Medications at Time of Discharge Medication Sig Dispensed Refills Start Date End Date calcium carbonate/vitamin D3 Take 1 capsule by 0 (VITAMIN D-3 ORAL) mouth daily. cyclobenzaprine (Flexeril) 5 1 tablet as needed. 0 01/03/2021 mg Tablet RARELY Ibuprofen 200 mg Capsule Take 400 mg by 0 016 mouth as needed. Multivitamins Tablet, Take by mouth. 0 Chewable Calcium 500 mg Tablet Take by mouth. 0 documented as of this encounter Plan of Treatment Not on filedocumented as of this encounter Procedures Procedure Name Priority Date/Time Associated Diagnosis Comme nts XR CERVICAL SPINE 2 Routine 02/22/2021 4:13 PM Cervicalg ia Results for this OR 3 VIEWS EDT Cervical spondylosis procedu re are in the results section. documented in this encounter Results XR Cervical Spine 2 or 3 Views (02/22/2021 4:13 PM EDT) Anatomical Region Laterality Modality C-spine N/A Digital Radiography Specimen (Source) Anatomical Location Collection Method / Collectio n Time Received Time / Laterality Volume Impressions 02/22/2021 5:29 PM EDT 1. ??No significant degenerative disc disease or spondylosis. 2. ??Gradual reversal of the normal cerv ical lordosis, which may be on the basis of positioning/muscle strain. 3. 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 Thank you for letting us participate in the care of this patient. ??If you are a health care provider and have any questi ons regarding this report, please contact the number below. ??For patients who have questions please contact the health wild animal caretaker that requested your imaging first. ? Electronically signed by: Vanessa Vigil MD, [facility] ([phone]), at 02/22/2021 5:29 PM Narrative 02/22/2021 5:29 PM EDT EXAMINATION: XR CERVICAL SPINE 2 OR 3 VIEWS CLINICAL HISTORY: Cervical spondylosis Chronic axial neck pain TECHNIQUE: 2 views of the cervical spine: Upright A P and lateral radiograph COMPARISON: None FINDINGS: C1-C7 visualized on the lateral radiogra ph, suboptimal visualization of the cervicothoracic junction due to overlyin g soft tissues. Additionally, suboptimal visualization of the odontoid and body o f the dens on the AP view due to overlying osseous structures. No prevertebral soft tissue swelling. Th ere is gradual reversal of the normal cervical lordosis centered at C5-C6. No acute fracture or subluxation is identified. The visualized intervertebra l disc spaces appear maintained. No significant osteophytosis. There is sugg estion of at least partial fusion of the posterior elements of C2 and C3. The vis ualized lung apices appear clear. Procedure Note Vanessa Vigil MD - 02/22/2021Formatt ing of this note might be different from the original. EXAMINATION: XR CERVICAL SPINE 2 OR 3 EWS CLINICAL HISTORY: Cervical spondylosis Chronic axial neck pain TECHNIQUE: 2 views of the cervical spine: Upright A P and lateral radiograph COMPARISON: None FINDINGS: C1-C7 visualized on the lateral radiogra ph, suboptimal visualization of the cervicothoracic junction due to overlyin g soft tissues. Additionally, suboptimal visualization of the odontoid and body o f the dens on the AP view due to overlying osseous structures. No prevertebral soft tissue swelling. Th ere is gradual reversal of the normal cervical lordosis centered at C5-C6. No acute fracture or subluxation is identified. The visualized intervertebra l disc spaces appear maintained. No significant osteophytosis. There is sugg estion of at least partial fusion of the posterior elements of C2 and C3. The vis ualized lung apices appear clear. IMPRESSION 1. No significant degenerative disc dise ase or spondylosis. 2. Gradual reversal of the normal cervic al lordosis, which may be on the basis of positioning/muscle strain. 3. Apparent partial fusion of the distilling department supervisor ior elements of C2 and C3, which may be on a congenital basis. Thank you for letting us participate in the care of this patient. If you are a health care provider and have any questi ons regarding this report, please contact the number below. For patients w ho have questions please contact the health wild animal caretaker that requested your imaging first. Electronically signed by: Vanessa Vigil MD, [facility] ([phone]), at 02/22/2021 5:29 PM Alan Guzman MD IMG DX ORDERABLES documented in this encounter Visit Diagnoses Diagnosis Cervicalgia Cervical spondylosis Cervical spondylosis without myelopathy documented in this encounter Care Teams Fruit Picker Machine Operator Relationship Specialty Start Date End Date Sudha Crespo APRN PCP - General Family Medicine 07/18/17 [address] [place] [address] documented as of this encounter
--- OUTSIDE RECORDS SUMMARY | 2022-03-01 00:32 | XMS_ITS | Encounter Summary ---
:1970 Author Organization [facility] [place] [address] Care Team Providers Name Role Phone Sudha Crespo APRN Primary Care Provider Reason for Referral Physical Therapy (Routine) - Specialty Diagnoses / Procedures Referred By Contact Refer red To Contact Physical Therapy Diagnoses Cervicalgia Myofascial pain Cervical spondylosis Scapular dyskinesis [place] [address] Referral ID Status Reason Start Date Expiration Date Visits V isits Requested Authorized [id number] Evaluate and 02/22/2021 08/21/2021 12 12 Treat Non PCP Reason for Visit Reason Comments Neck Pain Back Pain Consultation (Routine) - Closed Specialty Diagnoses / Procedures Referred By Contact Refer red To Contact [facility] Diagnoses Cervicalgia Spine- neck pain/ no new imaging/ Has tried PT Sudha Crespo, [facility] [employer] Spine [address] [place] [address] [place] [phone] Phone: Fax: Referral ID Status Reason Start Date Expiration Date Visits V isits Requested Authorized [id number] Closed Consult, Test 01/03/2021 07/06/2021 6 [facility] PCP Updated and/or Approved Encounter Details Date Type Department Care Team Description 02/22/2021 Office Visit [facility] Dann Guzman dd, MD Cervicalgia; at [facility] Myofascial pain; [facility] Cervical spondylosis; [address] [address] Scapular dyskinesis JO[place] [place] [phone] (Work) [phone] Social History Tobacco Use Types Packs/Day Years [...] Sign Reading Time Taken Comments Blood Pressure 133/78 02/22/2021 2:06 PM EDT Pulse 71 02/22/2021 2:06 PM EDT Temperature - - Respiratory Rate - - Oxygen Saturation 95% 02/22/2021 2:06 PM EDT Inhaled Oxygen Concentration - - Weight 72.6 kg (160 lb) 02/22/2021 2:06 PM EDT Height 157.5 cm (5' 2) 02/22/2021 2:06 PM EDT Body Mass Index 29.26 02/22/2021 2:06 PM EDT documented in this encounter Progress Notes Alan Guzman MD - 02/22/2021 2:00 PM EDT Chief Complaint Patient presents with ??? Neck Pain ??? Back Pain Subjective: Carmelina Arroyo is a 50 y.o. female who presents for Physical Medicine and Rehabilitation consultation,at the request of Sudha Crespo APRN. She reports primary symptoms of pain and pressure in lower cervical to upper thoracic regions. The symptoms are most marked in bilateral upper trapezius and haveleft- sided predominance. She reports pain in these regions with transitional movements in and out ofsitting. Water pressure on the area can result in the development of local [id number] sensation. The patient also notes that massage of the upper extremities can be painful. Onset of symptoms: Approximately three years ago, gradual onset. 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 The frequency and intensity of pain have increased over time. Pain characteristics: Constant, aching and sore to sharp in quality. Pain is currently graded as 3-4/10 in intensity. Exacerbating factors: Picking up objects from the floor, weeding, heavy lifting, bilateral neck rotation and overhead activity. Alleviating factors: Ibuprofen and massage. The patient denies upper extremity pain radiation. She can experience non- contiguous pain at the thoracolumbar junction with overhead activity. The patient denies upper extremity numbness, tingling, focal upper extremity weakness or gait/balance impairment. She gives a history of chronic stress urinary incontinence. Current treatment: None. The patient had a 2-month course of physical therapy ending in October 2019. 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 She is aware of ergonomic design principles, but has never had a formal ergonomic assessment of her workspace. She reports fear of triggering pain by activity. She has been managing her symptoms through activityrestriction. Additional somatic symptoms include headache pain. This is generally been left- sided, but is otherwise difficult to localize. Clinical materials reports reviewed: 1. Clinical office note of Priyanka Crespo APRN, 01/03/2021. The patient was seen for neck pain with left-sided predominance. She gave a history of activity- related cervicalgia. CT scan from 2019 was reviewed as showing mild lower cervical spondylosis with mild disc bulge and kyphosis at C5-C6. PT treatment was recommended, but was declined by the patient. Spine consultation was planned. Past Medical History: Diagnosis Date ??? Anxiety ??? Menorrhagia ??? Urinary tract bacterial infections Past Surgical History: Procedure Laterality Date ??? APPENDECTOMY ??? SECTION x2 ??? DILATION AND CURETTAGE OF UTERUS x2 Current Outpatient Medications on File Prior to Visit Medication Sig Dispense Refill ??? calcium carbonate/vitamin D3 (VITAMIN D-3 ORAL) Take 1 capsule by mouth daily. ??? cyclobenzaprine (Flexeril) 5 mg Tablet 1 tablet as needed. RARELY ??? Ibuprofen 200 mg Capsule Take 400 mg by mouth 2 times daily. ??? Multivitamins Tablet, Chewable Take by mouth. ??? Calcium 500 mg Tablet Take by mouth. No current facility-administered medications on file prior to visit. Allergies Allergen Reactions ??? Kale ??? Penicillins Other reaction(s): Skin Rash ??? Sulfite Review of Systems: As above. Objective: BP 133/78 Pulse 71 Ht 157.5 cm (5' 2) Wt 72.6 kg (160 lb) SpO2 95% BMI 29.26 kg/m?? The patient is seated comfortably and in no apparent distress. Gait and station: Normal. There is no difficulty performing bilateral heel or toe walking. Neck is protracted. There is marked bilateral shoulder protraction. Cervical motion: Active flexion limited to 15 degrees. Active extension 75 degrees, associated with left superomedial parascapular to central cervicothoracic junction pain at end range. Bilateral lateral cervical flexion is mild to moderately restricted. Mild restriction is noted in rightly cervical rotation. Mild restrictions are noted in bilateral shoulder flexion and abduction, right greater than left andin internal and external rotation, right greater than left, when tested from the abducted position. Right scapulothoracic rhythm is impaired. Impingement signs are negative at the shoulders. Palpation: Pain is elicited at 6/18 defined tender points. There is no focal tenderness to palpationin the midline cervical or thoracic spines. Tenderness and increased muscle tension are noted over left posterior cervical strap musculature, bilateral upper trapezius and left serratus anterior. Palpation of the latter produces left lower extremity pain radiation. There is additional tenderness over right pectoralis and bilateral anterior subacromial spaces and bicipital tendons. There is tenderness and increased muscle tension over left biceps, triceps, extensor carpi radialis and flexor carpi radialis. Palpation of the latter produces pins and needle sensation in ipsilateral small finger. There is tenderness and increased muscle tension over right biceps, extensor carpi radia lis and flexor carpi radialis. Palpation of the latter results in pins and needle sensation in ipsilateral small finger. Motor: Bilateral lower traps 4 -/5. Upper extremity motor examination otherwise 5/5 throughout. Sensation: There is a nondermatomal decrease in sensation to light touch throughout left hand. Sensation is decreased to light touch in the posterior aspect of the left arm. 2+ bilaterally for biceps, triceps and brachioradialis. Tone normal throughout the upper extremities. MMuscle stretch reflexes: Chinchilla's reflex absent in the upper extremities. Spurling test negative bilaterally. Assessment: Encounter Diagnoses Name Primary? Cervicalgia ??? Myofascial pain ??? Cervical spondylosis ??? Scapular dyskinesis The patient is a 50-year-old female who presents with chronic axial cervicothoracic pain. There are no radicular symptoms and no clear-cut radicular signs on examination to support the presence of cervical radicular process. According to the primary care records, cervical CT two years ago demonstrated mild spondylotic changes at C5-C6. I cannot exclude a facet-mediated component to the patient's axial pain symptoms. Today's examination demonstrates altered posture and alignment through neck and shoulders, mildly impaired range of motion at the shoulders, right greater than left, parascapular weakness, impaired right scapulothoracic rhythm and bilateral shoulder bursitis. These findings suggest postural and myofascial components to the patient's pain symptoms. Upper and lower extremity sensory symptoms can be produced through soft tissue palpation, suggesting the presence of possible myofascial pain syndrome. I have explained my findings and impressions in detail to the patient. I recommend cervical radiographs to assess bony alignment and the current extent of spondylotic change. I also recommend outpatient PT treatment and have explained the rationale for such treatment to the patient in detail. After our discussion, she has agreed to proceed. Prescription has been written for postural jew, active range of motion and stretch to neck and shoulder girdles, myofascial therapy to the upper traps and parascapulars, jew of normal bilateral scapulothoracic rhythm, anti- inflammatory modalities as needed to the shoulder bursae and progression to cervical and parascapular stabilization and strengthening. Consideration may be given to diagnostic cervical medial branch blocks and radiofrequency ablation, depending on the response to PT treatment and the further evolution of the patient's symptoms and examination. Consideration will be given to orthopedic shoulder consultation if shoulder pain and dysfunction persist, despite PT treatment. Plan: 1. Outpatient PT treatment. A prescription has been provided to the patient for treatment in her local area. 2. Follow-up with me in 8 weeks during PT treatment. The consultation request of Sudha Crespo APRN is greatly appreciated. Total time spent on date of encounter = 68 minutes. Alan Guzman MD, MS 02/22/2021 documented in this encounter Plan of Treatment Scheduled Referrals Name Type Priority Associated Diagnoses Order S chedule Referral to Outpatient Referral Routine Cervicalgia Ordered: Physical Therapy Myofascial pain 02/22/2021 Cervical spondyl osis Scapular dyskinesis documented as of this encounter Results XR Cervical Spine 2 [...] who have questions please contact the health clinical care manager that requested your imaging first. ? Electronically signed by: Vanessa Vigil MD, [facility] ([phone]), at 02/22/2021 5:29 PM Narrative 02/22/2021 5:29 [...] strain. 3. 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 Thank you for letting us participate in the care of this patient. If you are a health care provider and have any questi ons regarding this report, please contact the number below. For patients w ho have questions please contact the health clinical care manager that requested your imaging first. Electronically signed by: Vanessa Vigil MD, [facility] ([phone]), at 02/22/2021 5:29 PM Alan Guzman MD IMG DX ORDERABLES documented in this encounter Visit Diagnoses Diagnosis Cervicalgia Myofascial pain Mylagia and myositis, unspecified Cervical spondylosis Cervical spondylosis without myelopathy Scapular dyskinesis Lack of coordination Cervicalgia Cervical spondylosis Cervical spondylosis without myelopathy documented in this encounter Care Teams Environmental Web Crawler Relationship Specialty Start Date End Date Sudha Crespo APRN PCP - General Family Medicine 07/18/[address] [place] [address] [place] [address] documented as of this encounter
--- OUTSIDE RECORDS SUMMARY | 2022-03-01 00:32 | XMS_ITS | Clinical Summary ---
:1970 Author Organization [facility] [place] [address] Care Team Providers Name Role Phone Zak Sudha LYON Primary Care Provider Allergies Active Allergy Reactions Severity Noted Date Comments [place]rose 12/06/2017 Penicillins 04/25/2020 Other reaction( s): Skin Rash Sulfite 04/25/2020 Medications Medication Sig Dispensed Refills Start Date End Date Status Multivitamins Tablet, Take by mouth. 0 Active Chewable Calcium 500 mg Tablet Take by mouth. 0 Active calcium Take 1 capsule 0 Activ e carbonate/vitamin D3 by mouth daily. (VITAMIN D-3 ORAL) cyclobenzaprine 1 tablet as 0 01/03/2021 A ctive (Flexeril) 5 mg Tablet needed. RARELY Ibuprofen 200 mg Capsule Take 400 mg by 0 10/20/2015 Active mouth as needed. Active Problems Problem Noted Date Hematuria 12/06/2017 Bladder pain 12/06/2017 Nevus 09/25/2014 Family History Medical History Relation Comments Seizure Disorder Cousin Seizure Disorder Daughter Hyperlipidemia Father Type 2 Diabetes Father Type 2 Diabetes Mother Seizure Disorder Son Breast Cancer Neg Hx Colorectal Cancer Neg Hx Ovarian Cancer Neg Hx Pancreatic Cancer Neg Hx Uterine Cancer Neg Hx Relation Status Comments Cousin Daughter Father Mother Son Social History Tobacco Use Types Packs/Day Years [...] Assigned at Date Recorded Not on file Last Filed Vital Signs Vital Sign Reading Time Taken Comments Blood Pressure 116/60 06/03/2021 3:53 PM EDT Pulse 64 06/03/2021 3:53 PM EDT Temperature 36.8 ??C (98.2 ??F) 12/27/2017 9:29 AM EDT Respiratory Rate - - Oxygen Saturation 95% 02/22/2021 2:06 PM EDT Inhaled Oxygen Concentration - - Weight 70.3 kg (155 lb) 06/03/2021 3:53 PM EDT Height 157.5 cm (5' 2) 06/03/2021 3:53 PM EDT Body Mass Index 28.35 06/03/2021 3:53 PM EDT Plan of Treatment Health Maintenance Due Date Last Done Comments Covid-19 Vaccine (#1) 10/24/1976 HIV screen 10/24/1989 Hepatitis C Screening 10/24/1989 Tdap adult 10/24/1990 Tetanus vaccine 10/24/1990 Breast Cancer Share Decision Needed 2011 Diabetes Screening (HgbA1C or Glucose) 2011 Colonoscopy 10/24/2016 Breast Cancer screening 10/24/2021 Zoster vaccine (1 of 2) 10/24/2021 Influenza (Flu) vaccine (1 of 1 - Influenza standard 04/13/2022 series) HPV test 12/06/2022 12/06/2017 PAP Smear 12/06/2022 12/06/2017 Insurance Payer Benefit Plan / Subscriber ID Effective Dates Phone Addre ss Type Group [employer] [facility] [place] [id number] 2020-Present [address] [place] [address] [phone] [place] [address] [place] [id number] Care Teams Retail Client Manager Relationship Specialty Start Date End Date Sudha Crespo APRN PCP - General Family Medicine 07/18/17 [place] [address]
--- OUTSIDE RECORDS SUMMARY | 2022-03-01 00:33 | XMS_ITS | Encounter Summary ---
:1970 Author Organization [facility] [place] [address] Care Team Providers Name Role Phone Sudha Crespo APRN Primary Care Provider Reason for Referral Diagnostic Test (Routine) - Closed Specialty Diagnoses / Procedures Referred By Contact Refer red To Contact Radiology Diagnoses Chronic bladder pain Gross hematuria Gerry Contreras MD [facility] Rad Ct Scan Procedures CT Urogram [facility] OBSTETRICS & [place] [address] [place] [address] Referral ID Status Reason Start Date Expiration Date Visits V isits Requested Authorized [id number] Closed Specialty 12/06/2017 02/03/2018 1 1 Service Requested Reason for Visit Reason Comments Cystitis Interstitial Cystitis Consultation (Routine) - Closed Specialty Diagnoses / Procedures Referred By Contact Refer red To Contact Obstetrics and Diagnoses year long hx of pelvic symptoms, associated with urination, burning sensation, discomfort, no UTI, high urinary frequency, no pain w/ intercourse Sudha Crespo, [facility] [employer] 5l Gynecology DEPARTMENT DIRECTOR [address] [phone] Fax: Referral ID Status Reason Start Date Expiration Date Visits V isits Requested Authorized [id number] Closed Consult, 07/19/2017 07/19/2018 1 1 [facility] & Treat [facility] Encounter Details Date Type Department Care Team Description 12/06/2017 Office Visit Obstetrics and Gerry Contreras IC (inter stitial cystitis); Gynecology at [facility] Chronic bladder pain; [facility] Gabriela ss hematuria; Drive Screening for malignant neoplasm of cerv ix [place], [place] OBSTETRICS & [phone] GYNECOLOGY [phone] [place], [place] [address] Social History Tobacco Use Types Packs/Day Years [...] Sign Reading Time Taken Comments Blood Pressure 121/74 12/06/2017 8:00 AM EDT Pulse 66 12/06/2017 8:00 AM EDT Temperature 36.7 ??C (98.1 ??F) 12/06/2017 8:00 AM EDT Respiratory Rate - - Oxygen Saturation 100% 12/06/2017 8:00 AM EDT Inhaled Oxygen Concentration - - Weight 71.7 kg (158 lb) 12/06/2017 8:00 AM EDT Height 158.8 cm (5' 2.5) 12/06/2017 8:00 AM EDT Body Mass Index 28.44 12/06/2017 8:00 AM EDT documented in this encounter Progress Notes Gerry Contreras MD - 12/06/2017 8:00 AM EDT Female Pelvic Medicine and Reconstructive Surgery @ [facility] Patient Name: Carmelina Arroyo Patient Primary Care Provider: Sudha Crespo APRN Patient Active Problem List Diagnosis Code ??? Nevus D22.9 ??? Hematuria R31.9 ??? Bladder pain R39.89 Chief Complaint: Bladder pain History of Present Illness: Ms. Arroyo is a 47 y.o. para 2 woman, seen at the kind request of Sudha Crespo. She presents for evaluation and assessment of bladder irritation/pain of 4 years duration. Ms. Arroyo describes two different sensations of bladder discomfort. She has had a long history of UTI's and thatfeels like burning with urination. This occurs every 2 months. Most of the time when she starts having symptoms, she aggressively hydrates and drinks cranberry juice. Ms. Arroyo notices an increase of symptoms after intercourse. The other pain she describes is a knife-like pain such as having a cut or open wound. This hurts all the time, not limited to urination. This occurs less frequently about once ayear. Finally, she will notice blood in her urine with 1/3 just before the start of her menstrual cyc les. She has placed a tampon before to eliminate the possibility of vaginal bleeding. She urinates blood and has small clots right before her period starts. In the past she has been diagnosed with urinary stones in a urine sample. She does not believe the stones were analyzed and she was started on a course of antibiotics. She does feel her bladder discomfort is worse prior to her menses. She did have a bladder injury by her history, with her first section. Ms. Arroyo also needs a pap smear today per the records. Goals for this visit 1. Understand whats going on. Urinary tract history Patient has a history of recurrent urinary tract infection. The last time was a staph infection in October 2017. One culture + per year starting around 33 years old Patient no history of pyelonephritis. Patient no history of urinary tract abnormality. Patient yes history of nephrolithiasis. - once Patient yes history of hematuria within the last year and once a couple years ago. Bladder irritants: Fluid intake:2 cups of water plus the coffee Caffeine intake: 4-5 cups of coffee/tea Cigarette smoking (packs, time, if quit when): No, Alcohol: 3 times a week - half a beer Bladder Function Urinary incontinence: yes No. episodes: 2x per day Pad use (per day): none Pad type: n/a Daytime voids: 5 Nocturia: 1 Previous urinary incontinence treatment (Medical/Behavioral/Surgical): No treatment Storage symptoms x Urinary frequency - with UTIs x Nocturia x Stress urinary incontinence - leakage with exertion, cough/sneeze Urge urinary incontinence - leakage preceded immediately by urge to void Noctural enuresis - NOT IN ASSOCIATION WITH URGE Continuous urinary leakage Other: (e,g. giggle, intercourse-related) Bladder sensation x Normal - aware of filling and increased sensation up to desire to void Increased - feels an early and persistent need to void Reduced - aware of filling but NOT definite desire to void Absent - NO sensation of filling or need to void Non-specific - No specific bladder symptoms during filling or void Voiding symptoms None Slow stream x Spraying Intermittent stream - stop/start on > 1 occasion during void x Straining - muscular effort to initiate, maintain OR improve stream - does it intentionally to tryto completely empty even though she feels empty Terminal dribble - prolonged final part of void x Feeling of incomplete emptying Pelvic Organ Prolapse (POP) Any personally see or feel a vaginal bulge? yes What precipitates prolapse or symptoms of prolapse? no Previous treatment for POP (physical therapy, pessary, surgery)?: no Bowel Function Fecal incontinence (yes/no): no Number of fecal incontinent episodes (day/week): n/a Number of bowel movements (day/week): 2 per day Defecatory Dysfunction: Symptom Presence Symptom Presence NONE Incomplete Emptying Straining Infrequent stools (<3 week) Splinting Abdominal discomfort Loose stools Defecatory urgency Hard stools Other Sexual Function Active?: yes Pain with intercourse?: no If yes, insertional/Deep? n/a Desire to retain sexual function? yes Past Medical History: Diagnosis Date ??? Anxiety ??? Menorrhagia ??? Urinary tract bacterial infections Past Surgical History: Procedure Laterality Date ??? APPENDECTOMY ??? SECTION x2 ??? DILATION AND CURETTAGE OF UTERUS x2 Obstetric History T0 L2 SAB1 TAB1 Ectopic0 Multiple0 Live Births1 # Outcome Date GA Lbr James/2nd Weight Sex Delivery Anes PTL Lv 4 2013 3 TAB 2 Para F RADHA Name: Amisha 1 Para M Name: Gene Outpatient Prescriptions Marked as Taking for the 12/06/17 encounter (Office Visit) with Gerry Contreras MD Medication Sig Dispense Refill ??? Multivitamins Tablet, Chewable Take by mouth. ??? Calcium 500 mg Tablet Take by mouth. Allergies Allergen Reactions ??? Kale Social History Social History ??? Marital status: Spouse name: Elbert Arroyo ??? Number of children: 2 ??? Years of education: N/A Occupational History ??? Not on file. Social History Main Topics ??? Smoking status: Never Smoker ??? Smokeless tobacco: Never Used ??? Alcohol use 1.5 oz/week 3 Standard drinks or equivalent per week Comment: glass wine ??? Drug use: No ??? Sexual activity: Yes Partners: Male Other Topics Concern ??? 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 She lives with her , Elbert, and her two children. Family History Problem Relation Age of Onset ??? Hyperlipidemia Father ??? Type 2 Diabetes Father ??? Type 2 Diabetes Mother ??? Seizure Disorder Daughter ??? Seizure Disorder Son ??? Seizure Disorder Cousin ??? Ovarian Cancer Neg Hx ??? Colorectal Cancer Neg Hx ??? Breast Cancer Neg Hx ??? Uterine Cancer Neg Hx ??? Pancreatic Cancer Neg Hx Family History Problem Relation Age of Onset ??? Hyperlipidemia Father ??? Type 2 Diabetes Father ??? Type 2 Diabetes Mother ??? Seizure Disorder Daughter ??? Seizure Disorder Son ??? Seizure Disorder Cousin ??? Ovarian Cancer Neg Hx ??? Colorectal Cancer Neg Hx ??? Breast Cancer Neg Hx ??? Uterine Cancer Neg Hx ??? Pancreatic Cancer Neg Hx ROS: Review of all other systems negative except for those mentioned above or indicated below: System Symptom Presence Constitutional Weight Loss Weight gain Eyes History of glaucoma ENT/Mouth Mouth sores/Dry mouth Mouth sores once a year with stress and sunlight Cardiovascular Chest pain Related to anxiety Leg swelling Respiratory Wheezing SOB GI Nausea/vomiting Abdominal pain Skin/Breast Breast masses Rash/ulcer Musculoskeletal Muscle weakness Trouble Walking Neurological Dizziness/falling Numbness Psychiatric Depression Anxiety x Endocrine Abnormal thirst Hot flashes Hematologic Frequent bruising History of blood transfusions no Blood clots (DVT / PE) no Prior problems w/ anesthesia no Outside medical records reviewed: yes Data reviewed (images/urodynamic studies): To further delineate patient's urinary symptoms, a urine dip test and postvoid residual via bladder scanner were obtained. Results for orders placed or performed in visit on 12/06/17 POCT urine dipstick Result Value Ref Range POC Sp [place] WNL 1.002 - 1.030 POC pH, UA WNL 5.0 - 8.5 POC Leuk, UA Neg. Negative - Negative POC Nitrite, UA Neg. Negative - Negative POC Protein, UA Neg. Negative - Negative mg/dL POC Glucose, UA Norm. Normal - Normal mg/dL POC Ketone, UA Neg. Negative - Negative POC Urobil, UA Norm. 0.2 - 1.0 mg/dL POC Bili, UA Neg. Negative - Negative POC Blood, UA Neg. Negative - Negative monica/uL Bladder Scanner Result Value Ref Range Bladder Scan (mL) 35 mL OBJECTIVE: BP 121/74 Pulse 66 Temp 36.7 ??C (98.1 ??F) (Oral) Ht 158.8 cm (5' 2.5) Wt 71.7 kg (158 lb) LMP 10/23/2017 (Approximate) SpO2 100% BMI 28.44 kg/m2 General: normal appearing female, pleasant mood, normal speech Skin: skin of abdomen/pelvis notable for well-healed section scar and laparoscopy port sites. Respiratory: clear to auscultation bilaterally Neuro: no paraspinous tenderness; saddle sensory function (S2-4) intact in the pelvic area to touch Cardiac: regular rate and rhythm, no appreciated murmurs Gastrointestinal: no palpable masses/organomegaly, soft/nontender, no appreciable hernia Musculoskeletal: levator ani tone (0-5): 2, levator ani contraction (0-5): 2, no levator tenderness;lower extremity motor 5/5 bilaterally Pelvic: Cough stress test (empty supine): negative External Genitalia: Vulva, [place]'s and Bartholin glands normal, urethra without tenderness or mass Vagina: With Valsalva/cough, very little movement of the vagina Atrophic epithelium (yes/no)?: no Discharge?: no Cervix: Anterior, no obvious lesions, pap/hpv collected Bimanual (uterus/adnexa): retroflexed uterus, no obvious masses Impression: Ms. Arroyo is a .47 y.o. woman with: ?? Cyclic hematuria ?? Chronic bladder pain ?? Routine cervical cancer screening Recommendations: I reviewed the anatomy and physiology of bladder pain and cyclic hematuria. Given the cyclic nature of the hematuria and symptoms, this may be related to endometriosis in the bladder. IC is also on thedifferential but a thorough evaluation including cystoscopy in the clinic and CT urogram are warranted. She will also need a baseline creatinine. Office cystoscopy will help with OR planning if an endometrial implant is seen. We also discussed options to treat bladder endometriosis, which is excision in the OR. We briefly touched on treatment options for IC and these include diet modifications and bladder instillations. This patient was seen and evaluated with Dr. Contreras, UroGyn attending physician, with whom the plan was formulated. DARYA VAZ MD PGY5 I have seen the patient and reviewed the resident's above history and I agree with the details as written. The assessment and plan were formulated in discussion with me and I agree with them as documented. Pertinent History: Ms. Arroyo is a 47 year old woman with symptomatic bladder discomfort, often cyclical and with some sharp bladder pain with voiding intermittently. She has had negative cultures frequently despite feeling she has had a UTI. Recently, she was treated with a Staph urine infection and hasfelt better since. She has had cyclical hematuria as well. Pertinent Exam: I was present for her exam and agree with the findings as documented. Major issues addressed: Cyclical bladder pain, hematuria, suggestive of endometriosis, or less likely, a uterovesical fistula related to section in past. Interstitial cystitis is also possible Plan: Set up office cystoscopy, CT urogram. Pending results from office cystoscopy, consider furthersurgical planning or imaging, versus empiric treatment for IC. (x) ACOG or other informational pamphlets given to patient GERRY CONTRERAS MD Division of Female Pelvic Medicine/Reconstructive Surgery CC: Sudha Crespo APRN documented in this encounter Plan of Treatment Not on filedocumented as of this encounter Procedures Procedure Name Priority Date/Time Associated Comments Diagnosis CYTOPATHOLOGY Routine 12/06/2017 10:13 Screening for Results f or this GYNECOLOGICAL AM EDT malignant neoplasm procedur e are in of cervix the results section. HPV Routine 12/06/2017 9:30 AM Results f or this EDT procedure are i n the results section. MICROPHONE OPERATOR CYTOLOGY Routine 12/06/2017 9:30 AM Results f or this INTERPRETATION EDT procedure are in the results section. MICROPHONE OPERATOR CYTOLOGY FINAL Routine 12/06/2017 9:30 AM Res ults for this REPORT EDT procedure are i n the results section. BLADDER SCANNER Routine 12/06/2017 IC (interstitial Results for this cystitis) procedure are i n the results section. POCT URINE DIPSTICK Routine 12/06/2017 IC (interstitial Resu lts for this cystitis) procedure are i n the results section. documented in this encounter Results CT Urogram (12/13/2017 4:20 PM EDT) Anatomical Region Laterality Modality Abdomen, Pelvis Computed Tomography Specimen (Source) Anatomical Location Collection Method / Collectio n Time Received Time / Laterality Volume Impressions 12/14/2017 8:19 AM EDT 1. ??Negative CT urogram. No urinary cookie ology identified for hematuria. Of note, the patient does have a reported history of bladder injury in the setting of section and given the history o f cyclical hematuria, endometriosis to the bladder wall should be considered. T he absence of visible findings on CT within the bladder does not exclude endo metriosis. It is possible that endometriosis may not be visible on the urogram. Consider direct visualization with cystoscopy for further evaluation. 2. ??Small area of low-attenuation/cysti c change in the low anterior uterine segment could represent a site of endome triosis in the setting of a history of section. 3. ??Possible small, 7 mm, pericystic no dularity in the region of the dome of the bladder could represent small urachal re mnant, endometriosis, postsurgical scarring, or normal abutting musculature . Narrative 12/14/2017 8:19 AM EDT EXAMINATION: CT UROGRAM CLINICAL HISTORY: patient with cyclical hematuria, bladder pain. Additional history from the medical record: History of bladder injury time of first section. TECHNIQUE: Helical CT of the abdomen and pelvis was performed prior to and following intravenous administration of 110 ml of Omnipaque 350. ??3D VR and MIP images were reformatted on a separate wo rkstation and reviewed as part of this study. COMPARISON: None FINDINGS: Right kidney and ureter: The RIGHT kidne y is normal in size, position, and location with prompt symmetric enhanceme nt on postcontrast images. No renal or ureteral calculi are present. No complex cystic or solid enhancing renal lesions. On postcontrast urographic phas e images, there are no collecting system filling defects, or abnormal urothelial thickening. Left kidney and ureter: The LEFT kidney is normal in size, morphology, and position with prompt symmetric enhanceme nt postcontrast images. No renal or ureteral calculi are present. No complex cystic or solid enhancing renal lesions are seen. On the postcontrast urographic phase images, the collecting systems well opacified with contrast and there a re no filling defects or abnormal urothelial thickening. Urinary bladder: No bladder or urethral calculi are present. No abnormal bladder wall thickening or enhancing lesions. No bladder filling defects. There is possibly a 7 mm small enhancing soft tis jackelin nodularity adjacent to the dome of the bladder as seen on axial series 3 im age 76 and coronal series 604 image 26. This could represent a small urachal rem nant versus endometriosis. Lower chest: Normal. Liver: Liver is normal in size with a sm ooth capsular contour. There is a well-circumscribed fluid attenuation 11 mm focus in segment 2 which likely represents a simple cyst. The portal vei n is patent. Bile ducts: Nondilated. Gallbladder: No calcified gallstones. No rmal caliber wall. Pancreas: Normal. Spleen: Normal. Adrenals: Normal. Vasculature: No aneurysm. Lymph Nodes: No enlarged lymph nodes. Bowel: Nondilated, no wall thickening. ? ? Peritoneum and mesentery: No ascites, fr ee air, or loculated fluid collection. No mesenteric inflammation. Abdominal wall: Normal. Reproductive organs: The uterus is antev erted and slightly retroflexed. There is an area of decreased attenuation or poss ible cystic change within the low anterior uterine segment which measures approximately 1.7 x 1.4 x 4.4 cm. This could represent normal postoperative tra nsection changes; however, endometriosis along the section scar should a lso be considered given the patient's history. Osseous structures: No suspicious lesion s. Procedure Note Tj Gonzales MD - 12/14/2017Form atting of this note might be different from the original. EXAMINATION: CT UROGRAM CLINICAL HISTORY: patient with cyclical hematuria, bladder pain. Additional history from the medical record: History of bladder injury time of first section. TECHNIQUE: Helical CT of the abdomen and pelvis was performed prior to and following intravenous administration of 110 ml of Omnipaque 350. 3D VR and MIP images were reformatted on a separate wo rkstation and reviewed as part of this study. COMPARISON: None FINDINGS: Right kidney and ureter: The RIGHT kidne y is normal in size, position, and location with prompt symmetric enhanceme nt on postcontrast images. No renal or ureteral calculi are present. No complex cystic or solid enhancing renal lesions. On postcontrast urographic phas e images, there are no collecting system filling defects, or abnormal urothelial thickening. Left kidney and ureter: The LEFT kidney is normal in size, morphology, and position with prompt symmetric enhanceme nt postcontrast images. No renal or ureteral calculi are present. No complex cystic or solid enhancing renal lesions are seen. On the postcontrast urographic phase images, the collecting systems well opacified with contrast and there a re no filling defects or abnormal urothelial thickening. Urinary bladder: No bladder or urethral calculi are present. No abnormal bladder wall thickening or enhancing lesions. No bladder filling defects. There is possibly a 7 mm small enhancing soft tis jackelin nodularity adjacent to the dome of the bladder as seen on axial series 3 im age 76 and coronal series 604 image 26. This could represent a small urachal rem nant versus endometriosis. Lower chest: Normal. Liver: Liver is normal in size with a sm ooth capsular contour. There is a well-circumscribed fluid attenuation 11 mm focus in segment 2 which likely represents a simple cyst. The portal vei n is patent. Bile ducts: Nondilated. Gallbladder: No calcified gallstones. No rmal caliber wall. Pancreas: Normal. Spleen: Normal. Adrenals: Normal. Vasculature: No aneurysm. Lymph Nodes: No enlarged lymph nodes. Bowel: Nondilated, no wall thickening. Peritoneum and mesentery: No ascites, fr ee air, or loculated fluid collection. No mesenteric inflammation. Abdominal wall: Normal. Reproductive organs: The uterus is antev erted and slightly retroflexed. There is an area of decreased attenuation or poss ible cystic change within the low anterior uterine segment which measures approximately 1.7 x 1.4 x 4.4 cm. This could represent normal postoperative tra nsection changes; however, endometriosis along the section scar should a lso be considered given the patient's history. Osseous structures: No suspicious lesion s. IMPRESSION 1. Negative CT urogram. No urinary etiol ogy identified for hematuria. Of note, the patient does have a reported history of bladder injury in the setting of section and given the history o f cyclical hematuria, endometriosis to the bladder wall should be considered. T he absence of visible findings on CT within the bladder does not exclude endo metriosis. It is possible that endometriosis may not be visible on the urogram. Consider direct visualization with cystoscopy for further evaluation. 2. Small area of low-attenuation/cystic change in the low anterior uterine segment could represent a site of endome triosis in the setting of a history of section. 3. Possible small, 7 mm, pericystic nodu larity in the region of the dome of the bladder could represent small urachal re mnant, endometriosis, postsurgical scarring, or normal abutting musculature . Gerry Contreras MD IMG CT ORDERABLES Cytopathology Gynecological (12/06/2017 10:13 AM EDT) Specimen Anatomical Collection Method Collection Time Receive d Time (Source) Location / / Volume Laterality AP Specimen 12/06/2017 10:13 12/06/2017 AM EDT 10:13 AM EDT Narrative [facility] - 12/06/2017 10:13 AM EDT Specimen requisition ordered. ??Separate Pathology report to follow Gerry Contreras MD PATHOLOGY/CYTOLOGY ORDERABLE S Performing Organization Address City/State/[place] [address] MICROPHONE OPERATOR Cytology Interpretation (12/06/2017 9:30 AM EDT) [facility] gist Method Time Signature Electronics Technician Cytology [facility] Comment: Electronics Technician Cytology Final Report Acces irena: [id number] Endocervical Component Present [facility] Specimen Anatomical Collection Method Collection Time Receive d Time (Source) Location / / Volume Laterality AP Specimen 12/06/2017 9:30 AM 8 9:01 EDT AM EDT Darya Vaz MD PATHOLOGY/CYTOLOGY ORDERABLE S Performing Organization Address City/State/ZIP Code Phon e Number [facility] [place] [address] [facility] [address] Electronics Technician Cytology Final Report (12/06/2017 9:30 AM EDT) Component Value Ref Test Analysis Performed At [facility] Range Method Time Signature Electronics Technician Cytology [id number] ? Location: 5L GENA Final Report MEDINA The signing pathologist has (i) examined the relevant preparation(s) for the [facility] specimen(s) and (ii) rendered or confirmed the diagnosis(es) . HOSPITAL LABORATORY . ? Electronics Technician Final DIAGNOSIS Normal Negative for Intraepithelial Lesion or Malignancy (NILM). For consensus guidelines for the management of c ervical cancer screening test results, please see: ?? http://www.asccp.org . Electronically signed by: ??MIHAI Arreola(ASCP), Daphne Méndez Verified: ??12/13/2017 ?Edger Saw Operator Performed at: ??-[facility] Dept. of Pathology, [place], [place] HPV RESULTS HPV16 (Result) ?Negative HPV18 (Result) ?Negative HPVOHR (Result) ? Negative HPV (Interpretation) ?See Below HPV (Interpretation) Text: NEGATIVE for high-risk HPV *. *Testing negative for high risk HPV means that the specimen is negative for the following 14 types tested: types 16, 18, 31, 33, 35 , 39, 45, 51, 52, 56, 58, 59, 66, and 68. The test is not intended to detect low risk HPV types. Afshan susy HPV test Specimen: HPV Testing - Cytology Liquid Based Prep The Afshan susy ? HPV shefali t was validated, performed and results reported through the Laboratory for Clinical Gen omics and Advanced Technology (CGAT) at [facility]. ? - Ramiro Andrea, PhD, [facility], Director-[facility] STATEMENT OF ADEQUACY Specimen submitted is satisfactory. Endocervical component present. CLINICAL INFORMATION HPV Option: ?Concurrent HPV and Pap CT/NG Option: ?? No Preparation: ? Liquid based Pap Specimen Source: ? Cervical/Endocervical LMP: ? 10/23/2017 Hormones?: ? No Hysterectomy?: ? No ?: ? No ?: ? No I.U.D.?: ? No Pelvic Radiation: ?No Prior MICROPHONE OPERATOR Therapy?: ?No Hist Abnl Pap/Biopsy?: ?? No Hist of HPV Vaccine?: ?No Hist of Smoking?: ?No Hist of KAROL exposure?: ?? No ICD Diagnosis: ? Z12.4 Encounter for screening for malignant neoplasm of cervix . CLINICAL INFORMATION Clinical Data, Significant Therapy and Clinical Impression ? ? : ?_ This Pap Test has been evalu ated with the assistance of the ThinPrep Pap Test Imaging System. Note: The Pap test is a screening test for cervical cancer with an inherent false-negative rate dependent upon several variables. For further information please contact the [facility] Laboratory. Reference: Laurita VERA. Farm Technician of Pap Smear Results. In: Katie CHRISTIANSEN, Chi PANIAGUA, rose pearson. The Pap Smear. [place]: Ken, 2002: 71-77. Specimen (Source) Anatomical Collection Method Collection Time Re ceived Time Location / / Volume Laterality 12/06/2017 9:30 AM EDT Darya Vaz MD PATHOLOGY/CYTOLOGY ORDERABLE S Performing Organization Address City/State/[place] [address] HPV (12/06/2017 9:30 AM EDT) [facility] gist Method Time Signature HPV 16 NEGATIVE NEGATIVE [facility] HPV 18 NEGATIVE NEGATIVE [facility] HPV Other HR NEGATIVE NEGATIVE [facility] HPV See Comment [facility] LABORATORY Comment: NEGATIVE for high-risk HPV *. * Testing negative for high risk HPV harjit ns that the specimen is negative for the following 14 types tested: ??types 1 6, 18, 31, 33, 35, 39, 45, 51, 52, 56, 58, 59, 66, and 68. ??The test is not in tended to detect low risk HPV types. Afshan Susy HPV test Specimen: HPV Testing - Cytology Liquid Based Prep Specimen Anatomical Collection Method Collection Time Receive d Time (Source) Location / / Volume Laterality Cervical swab 12/06/2017 9:30 AM 12/07/19 18 1:59 (specimen) EDT PM EDT Resulting Agency Comment Spec In Lab Darya Vaz MD PATHOLOGY/CYTOLOGY ORDERABLE S Performing Organization Address City/State/ZIP Code Phon e Number [address] Bladder Scanner (12/06/2017) athologist Signature Bladder Scan 35 mL (mL) Gerry Contreras MD UROLOGY ORDERABLES POCT urine dipstick (12/06/2017) athologist Signature POC Sp [place] WNL 1.002 - 1.030 POC pH, UA WNL 5.0 - 8.5 POC Leuk, UA Neg. Negative - Negative POC Nitrite, Neg. Negative - UA Negative POC Protein, Neg. Negative - UA Negative mg/dL POC Glucose, Norm. Normal - UA Normal mg/dL POC Ketone, UA Neg. Negative - Negative POC Urobil, UA Norm. 0.2 - 1.0 mg/dL POC Bili, UA Neg. Negative - Negative POC Blood, UA Neg. Negative - Negative monica/uL Gerry Contreras MD POINT OF CARE TEST ORDERABLE S documented in this encounter Visit Diagnoses Diagnosis IC (interstitial cystitis) Chronic interstitial cystitis Chronic bladder pain Gross hematuria Screening for malignant neoplasm of cerv ix Screening for malignant neoplasm of the cervix Chronic bladder pain Gross hematuria documented in this encounter Care Teams Ground Products Director Relationship Specialty Start Date End Date Sudha Crespo APRN PCP - General Family Medicine 07/18/[address] [place] [place] [address] documented as of this encounter
--- OUTSIDE RECORDS SUMMARY | 2022-03-01 00:33 | XMS_ITS | Encounter Summary ---
:1970 Author Organization [facility] [place] [address] Care Team Providers Name Role Phone Marcum, Macy Gracia APRN Primary Care Provider Reason for Visit Reason Comments Skin Check Encounter Details Date Type Department Care Team Description 09/25/2014 Office Visit Dermatology at [facility] Ankit Mckeon MD [address] [facility] [address] [place] [address] DERMATOLOGY [phone] [place], [place] [address] (Wo rk) Social History Tobacco Use Types Packs/Day Years Used Date Never Smoker Alcohol Use Standard Drinks/Week Comments Yes 2.5 [...] on file documented as of this encounter Patient Instructions Patient InstructionsFrLeidy newell LPN - 09/25/2014 4:27 PM EST Images from the original note were not included. [facility] Moles: After Your Visit Your Care Instructions Moles are skin growths made up of cells that produce color (pigment). A mole can appear anywhere on the skin, alone or in groups. Most people get a few moles during their first 20 years of life. They are usually brown in color but can be blue, black, or flesh-colored. Most moles are harmless and do not cause pain or other symptoms, unless you rub them or they bump against something. You usually do not need treatment for moles. But some can turn into cancer. Talk to your doctor if amole bleeds, itches, soliz, or changes size or color. Also let your doctor know if you get a new mole. Make sure to wear sunscreen and other sun protection every day to help prevent skin cancer. Follow-up care is a meza part of your treatment and safety. Be sure to make and go to all appointments, and call your doctor if you are having problems. It???s also a good idea to know your test resultsand keep a list of the medicines you take. How can you care for yourself at home? ?? Check all the skin on your body once a month for skin growths or other changes, such as in the color and feel of the skin. ?? inside barrel polisher front of a full-length mirror. Look carefully at the front and back of your body. Then look at your right and left sides with your arms raised. ?? Bend your elbows and look carefully at your forearms, the back of your upper arms, and your palms. ?? Look at your feet, the bottoms of your feet, and the spaces between your toes. ?? Use a hand mirror to look at the back of your legs, the back of your neck, and your back, rear end (buttocks), and genital area. Part the hair on your head to look at your scalp. ?? If you see a change in a skin growth, contact your doctor. Look for: ?? A mole that bleeds. ?? A fast-growing mole. ?? A scaly or crusted growth on the skin. ?? A sore that will not heal. To prevent skin cancer ?? Always wear sunscreen on exposed skin. Make sure the sunscreen blocks ultraviolet rays (both UVA and UVB) and has a sun protection factor (SPF) of at least 15. Use it every day, even when it is cloudy. Some doctors may recommend a higher SPF, such as 30. ?? Wear a wide-brimmed hat and long sleeves and pants if you are going to be outdoors for very long. ?? Avoid the sun between 10 a.m. and 4 p.m., which is the peak time for the sun's ultraviolet rays. ?? Avoid sunburns, tanning booths, and sunlamps. ?? Be sure to protect children from the sun. Sunburns in childhood damage the skin and increase the risk of cancer. When should you call for help? Watch closely for changes in your health, and be sure to contact your doctor if: ?? A mole looks different than it did before. It may have changed in size, color, shape, or the way it looks. ?? You have a new mole. ?? You have a new pimple or skin growth that does not go away. Where can you learn more? Visit our health information library at [email or web address] You can also view health information on [employer], your personal patient account. Log in or sign up today. Enter M489 in the search box to learn more about Moles: After Your Visit. ?? [phone] [employer] Care instructions adapted under license by [facility]. This care instruction is for use with your licensed healthcare professional. If you have questionsabout a medical condition or this instruction, always ask your healthcare professional. [employer]) disclaims any warranty or liability for your use of this information. Content Version: 10.3.506699; Current as of: October 22, 2013 documented in this encounter Progress Notes Ankit Peraza MD - 09/25/2014 4:35 PM EST Problem: Changing mole, right cheek. Carmelina is a 43-year-old woman who for some time has had a round roughly 2-mm brown pigmented lesion on her right cheek. In recent months, she has noted it has taken on more of an hourglass shape although has not increased in size. She does not recall having traumatized it or scratched it in any way. It has not been symptomatic. It has not itched of burned or stung. There has been no rash in this area. She is referred today by Dr. Kam for evaluation of this. Patient reveals a pleasant 43-year-old woman who has type 4-5 Jenkins pigmentation, brown eyes, and dark hair. She has a number of small junctional melanocytic nevi present on her forehead and cheeks sparsely, and the one in question is about 2 mm in diameter with an hourglass shape to it. There is no underlying erythema. It is nontender to palpation. Assessment and Plan: Benign melanocytic nevus. A. Patient reassured about benign-appearing changes. B. Given changes seen today, do not feel that biopsy is necessary. However, encouraged her if this grows in size or undergoes further changes that I do see her back for a biopsy. C. Informational brochure on recognizing skin cancer given. Discussed ABCs of melanoma. Return to Clinic p.r.n. CC: Agapito Kam M.D. documented in this encounter Plan of Treatment Not on filedocumented as of this encounter Visit Diagnoses Diagnosis Nevus Benign neoplasm of skin, site unspecifie d documented in this encounter Care Teams Retail Asset Protection Specialist Relationship Specialty Start Date End Date Macy Marcum APRN PCP - General 10/03/12 10/08/16 documented as of this encounter
--- OUTSIDE RECORDS SUMMARY | 2022-03-01 00:33 | XMS_ITS | Encounter Summary ---
:1970 Author Organization [facility] [place] [address] Care Team Providers Name Role Phone Sudha Crespo APRN Primary Care Provider Reason for Referral Diagnostic Test (Routine) - Closed Specialty Diagnoses / Procedures Referred By Contact Refer red To Contact Radiology Diagnoses Chronic bladder pain Gross hematuria Gerry Contreras MD [facility] Rad Ct Scan Procedures CT Urogram [facility] [place] [address] [place] [address] Referral ID Status Reason Start Date Expiration Date Visits V isits Requested Authorized [id number] Closed Specialty 12/06/2017 02/03/2018 1 1 Service Requested Reason for Visit Diagnostic Test (Routine) - Closed Specialty Diagnoses / Procedures Referred By Contact Refer red To Contact Radiology Diagnoses Chronic bladder pain Gross hematuria Gerry Contreras MD [facility] Rad Ct Scan Procedures CT Urogram [facility] [place] [address] [place] [address] Referral ID Status Reason Start Date Expiration Date Visits V isits Requested Authorized [id number] Closed Specialty 12/06/2017 02/03/2018 1 1 Service Requested Encounter Details Date Type Department Care Team Description 12/13/[address] [place] [facility] Gerry Contreras, Chronic bladder pain; [facility] [address] [place], [place] CENTER [address] OBSTETRICS & [phone] [address] Social History Tobacco Use Types Packs/Day Years [...] Sig Dispensed Refills Start Date End Date Ibuprofen 200 mg Capsule Take 400 mg by 0 016 mouth as needed. Multivitamins Tablet, Take by mouth. 0 Chewable Calcium 500 mg Tablet Take by mouth. 0 documented as of this encounter Plan of Treatment Not on filedocumented as of this encounter Procedures Procedure Name Priority Date/Time Associated Diagnosis Comme nts CT SCAN UROLOGY Routine 12/13/2017 4:20 PM Chronic bladd er pain Results for this EDT Gross hematuria procedure ar e in the results section. documented in this [...] scarring, or normal abutting musculature . Gerry WILSON CT ORDERABLES documented in this encounter Visit Diagnoses Diagnosis Chronic bladder pain Gross hematuria documented in this encounter Administered Medications Inactive Administered Medications - up to 3 most recent administrations Medication Order MAR Action Action Date Dose Rate Site furosemide (LASIX) 10 mg/mL injection 1 dose, Starting on Justina 5/3/18 at 1617, Until Justina 12/13/17 at 1633, MELISSA IRELAND: cabinet override furosemide (LASIX) injection 10 mg Given 12/13/2017 4:33 PM EDT 10 mg 10 mg, Intravenous, ONCE, 1 dose, On Justina 12/13/17 at 0845, Routine iohexol (OMNIPAQUE) 350 mg/mL solution 0-200 Given 10/2017 4:44 PM EDT 110 mLs mL 0-200 mL, Intravenous, ONCE PRN, 1 dose, Starting on Justina 12/13/17 at 1644, Until Justina 12/13/17 at 1644, Per Protocol, Warning Vesicant/Irritant Medication , Radiology Contrast, Routine documented in this encounter Care Teams Vegetable Washer Relationship Specialty Start Date End Date Sudha Crespo APRN PCP - General Family Medicine 07/18/17 [place] [address] documented as of this encounter
--- OUTSIDE RECORDS SUMMARY | 2022-03-01 00:33 | XMS_ITS | Encounter Summary ---
:1970 Author Organization [facility] [place] [address] Care Team Providers Name Role Phone Marcum, Macy Gracia APRN Primary Care Provider Reason for Visit Reason Comments Family History seizures Advanced Maternal Age Pre-conception Encounter Details Date Type Department Care Team Description 06/30/2014 Office Visit Obstetrics and Gayla Jerez story of seizure disorder; Gynecology at [facility], [facility] Encounter for genetic counseling [facility] [address] [place] OBSTETRICS & [address] GYNECOLOGY [phone] [place], [place] [address] Social History Tobacco Use Types [...] on file documented as of this encounter Progress Notes Gayla Jerez, MS - 06/30/2014 8:17 AM EST Genetic Counseling Note I met withCarmelina Arroyo for 45 minutes, she was accompanied to the visit by her , Elbert. history: Carmelina is a 43 year old [id number]. Elbert has not fathered any pregnancies with another partner.The couple had a miscarriage that was sent to [place] for testing. Intially they reported dent syndrome but then described having HCG blood tests until normal which is mor common for a molar , which sounded familiar to them. We did not have any of these records to review today. Family history: Carmelina's family history includes Hyperlipidemia in her father; Type 2 Diabetes in herfather and mother. The remainder of the family history was unremarkable for any individuals with mental retardation, defects, recurrent loss, or known genetic conditions. Consanguinity d enied.Carmelina is of Yugoslovian, Telugu, Turkish, , Kazakh, Inca decent and Elbert is of Northern , Icelandic, Stateless decent. Assessment: Their children have different types of seizures. There is a two cousins who may have had febrile seizure and another cousin treated for a year after having two seizures. This couples children are developing and growing normally. Their neurologist evaluated their skin and no Concerns raised about neurofibromatosis. We discussed that seizures can occur in isolation, as part of a genetic syndrome, or asthe result of an environmental insult. Their childrens's seizures are reportedly isolated. For idiopathic seizures, the recurrence risk for a another sibling is approximately 10-25%. We reviewed the association of maternal age and chromosome aneuploidy. We discussed the screening and diagnostic testing options that will be available in a future . The screening options include non-invasive screening and ultrasound. The diagnostic tests include chorionic villus sampling (CVS) and amniocentesis. We reviewed each of their risks, results, and limitations. After our discussion, the couple would probably consider non- invasive screening. They were given an pamphlet on [employer] which offers this screening. We discussed the etiology, incidence, inheritance and clinical features of cystic fibrosis (CF). We reviewed the risk to the and the benefits, risks and limitations of CF carrier screening. We also discussed the inclusion of CF on the State Screening Panel. The couple plans to check with their insurance first. If covered they will opt to pursue CF carrier screening. Plan: The couple will contact your office if interested in pursuing CF carrier screening. No further recommendations made. documented in this encounter Plan of Treatment Not on filedocumented as of this encounter Visit Diagnoses Diagnosis Family history of seizure disorder Family history of other neurological dis eases Encounter for genetic counseling Genetic counseling documented in this encounter Care Teams Toddler Teacher Relationship Specialty Start Date End Date Macy Marcum APRN PCP - General 10/03/12 10/08/16 documented as of this encounter
--- OUTSIDE RECORDS SUMMARY | 2022-03-01 00:33 | XMS_ITS | Encounter Summary ---
:1970 [place] [address] Care Team Providers Name Role Phone Sudha Crespo APRN Primary Care Provider Reason for Visit Reason Comments Medication Refill Encounter Details Date Type Department Care Team Description 12/03/2018 Refill Obstetrics and Gynecology at [facility] Gerry hassan MD Dysmenorrhea [facility] Mushtaq david OBSTETRICS & [place] [address] [place] [address] [phone] (Wo rk) Social History Tobacco Use Types [...] on file documented as of this encounter Plan of Treatment Not on filedocumented as of this encounter Visit Diagnoses Diagnosis Dysmenorrhea documented in this encounter Care Teams Computer Analyst Supervisor Relationship Specialty Start Date End Date Sudha Crepso APRN PCP - General Family Medicine 07/18/17 [place] [address] documented as of this encounter
--- OUTSIDE RECORDS SUMMARY | 2022-03-01 00:33 | XMS_ITS | Encounter Summary ---
:1970 Author Organization [facility] [address] Care Team Providers Name Role Phone HeavendarronSudha oneal APRN Primary Care Provider Encounter Details Date Type Department Care Team Description 12/14/2017 Telephone Obstetrics and Gynecology at [facility] Amanda hassan MD [facility] Mushtaq david OBSTETRICS & [place] [address] [place] [address] [phone] (Wo rk) Social History Tobacco Use Types [...] on file documented as of this encounter Miscellaneous Notes Telephone Encounter - Amanda Contreras MD - 12/14/2017 2:04 PM EDT TELEPHONE NOTE Caller: AMANDA CONTRERAS MD Reason for call: I called Ms. Arroyo to review the CT urogram findings. Normal kidneys, ureters but area at anterior lower uterine segment with low-attenuation as below: There is an area of decreased attenuation or possible cystic change within the low anterior uterine segment which measures approximately 1.7 x 1.4 x 4.4 cm. IMPRESSSION: ... 2. Small area of low-attenuation/cystic change in the low anterior uterine segment could represent a site of endometriosis in the setting of a history of section. 3. Possible small, 7 mm, pericystic nodularity in the region of the dome of the bladder could represent small urachal remnant, endometriosis, postsurgical scarring, or normal abutting musculature. Assessment: Cyclical hematuria. CT findings suspicious for endometriosis of lower uterine segment, bladder. Plan/Instructions: Cystoscopy is arranged for 12/27/17. We reviewed that if endometriosis is confirmed, options include continuous OC's, GnRH agonist, laparoscopic or open excision, consideration of hysterectomy. She agrees to proceed with cystoscopy and we will discuss at that visit. AMANDA CONTRERAS MD documented in this encounter Plan of Treatment Not on filedocumented as of this encounter Visit Diagnoses Diagnosis Gross hematuria documented in this encounter Care Teams Fuel House Attendant Relationship Specialty Start Date End Date Sudha Crespo APRN PCP - General Family Medicine 07/18/17 [place] [address] documented as of this encounter
--- NOTE | 2022-03-22 | DI.MAMMO_ITS ---
Exam(s) MAMMO SCREENING EXAM: MAMMO SCREENING CLINICAL HISTORY: SCREENING FOR BREAST CA, Z12.39 TECHNIQUE: Mammograms were interpreted according to the usual protocol including computer analysis w [facility] CAD system, tomosynthesis and C-view imaging. COMPARISON: FINDINGS: the breasts are heterogeneously dense. No dominant mass or clumped microcalcification is identified in either breast. No prior studies are available for comparison. IMPRESSION: no specific evidence of malignancy at this time. Routine screening examinations are suggested at yea rly intervals in this age group according to the ACS ACR guidelines. BI-RADS Category 1 - Negative Breast Density - Category C - Heterogeneously dense
== END ==
PROVIDERS: PCP Nurse Practitioner Family; Visit Provider Nurse Practitioner Family
DX: Z12.31 Encounter for screening mammogram for malignant neoplasm of breast (principal); R92.8 Other abnormal and inconclusive findings on diagnostic imaging of breast
CPT/HCPCS: 77063; 77067

== ENCOUNTER 2022-03-22 19:08 | Outpatient (REF) | payer BC, SELFPAY ==
[2022-03-23 23:23] LABS: Parathyroid Hormone,Intact 103 pg/mL (19-88)
== END 2022-03-22 19:09 | disposition home or self-care (01) ==
LOC: NCHCN 19:08
PROVIDERS: Visit Provider Nurse Practitioner Family
DX: E83.52 Hypercalcemia (principal)
CPT/HCPCS: 82330; 83970

== ENCOUNTER 2022-06-19 01:34 | Outpatient (CLI) | payer BC, SELFPAY ==
--- NOTE | 2022-06-19 09:15 | DI.MRI_ITS ---
Exam(s) MR CERVICAL SPINE WO EXAM: MR CERVICAL SPINE WO CLINICAL HISTORY: L cervical radiculopathy, lt leg/hand paresthesias, R20.2, M54.12 TECHNIQUE: Multiplanar multisequence MRI of the cervical spine was performed without intravenous con trast. COMPARISON: No exams were available for comparison FINDINGS: CERVICOMEDULLARY JUNCTION: Intact with no evidence of cerebellar tonsillar ectopia. No obvious abnor mality of the odontoid process. No evidence of Chiari 1 malformation. CERVICAL SPINAL CORD: There is no abnormal signal in the cervical spinal cord and no evidence of foca l cord atrophy nor focal cord swelling. OSSEOUS:There are no cervical fractures evident. No significant osseous lesions in the cervical vert ebrae. Mild reversal of the normal curvature is evident. INDIVIDUAL LEVELS: C2-3: No disc herniation nor central canal stenosis. No foraminal stenosis. No facet arthropathy. C3-4: No disc herniation nor central canal stenosis.No facet arthropathy. No foraminal stenosis. C4-5: No disc herniation nor central canal stenosis.No facet arthropathy. No foraminal stenosis C5-6: Mild disc space narrowing. Posteriorly there is broad annular bulging which T indents the thec al sac and contacts the anterior aspect of the spinal cord but does not flatten the cord. At this le lucinda the AP dimensions of the central spinal canal is 9 millimeters. There is no significant facet ar thropathy at this level. No significant foraminal stenosis. No abnormal signal in the cord. C6-7: Normal disc height and signal. No disc herniation or canal stenosis. No facet arthropathy. N o foraminal stenosis. C7-T1: No disc herniation nor central canal stenosis. No facet arthropathy.No foraminal stenosis. IMPRESSION: 1. At C5-6 level there is broad relatively symmetrical annular bulging which indents the thecal sac a nd contacts the spinal cord at this level. The central canal dimensions at this level are lower norm al. Facet joints are unremarkable and there is no significant foraminal stenosis at this level. 2. No abnormal signal in the cervical spinal cord. No focal cord swelling and no focal cord atrophy. DATA REPOSITORY:
--- NOTE | 2022-06-19 09:17 | DI.MRI_ITS ---
Exam(s) MR BRAIN WO EXAM: MR BRAIN WO CLINICAL HISTORY: ?MS, lt leg/hand paresthesias, cervical radiculopathy, R20.2, M54.12 TECHNIQUE: Multiplanar multisequence MRI of the brain was performed. COMPARISON: No exams were available for comparison FINDINGS: CEREBRAL PARENCHYMA: There is no evidence of intracranial hemorrhage, mass effect, or shift of midline structures. There are no extra-axial fluid collections. Ventricles are not enlarged or shifted. There is no significant focal signal abnormality in the cerebellar hemispheres nor within the kimberly, m idbrain, and thalami. There are a few nonspecific sub cm foci of peripheral white matter FLAIR bright signal abnormality in the bilateral parietal lobes. These are not associated with hemorrhage or surrounding edema nor res tricted diffusion on DWI. There is no significant focal signal abnormality evident on diffusion imaging to suggest acute ischem ic event. PITUITARY GLAND: No mass nor parasellar abnormality. No obvious abnormality in the cavernous sinuses. FLOW VOIDS: The expected flow void are noted. No evidence of obvious aneurysm nor obvious vascular ma lformation. PARANASAL SINUSES: Mucosal thickening in both maxillary sinuses without fluid level therein. Mucosal thickening also noted in the ethmoidal air cells and frontal sinuses. Also in sphenoid sinuses. ORBITS: No obvious findings. IMPRESSION: There few relatively symmetrical bilateral nonspecific foci of signal abnormality in subcortical whit e matter both posterior parietal lobes. There is no associated hemorrhage, acute infarction, nor gurvinder rounding edema on either side at these levels. Recommend follow-up scan in 6 months to ensure stability. DATA REPOSITORY:
== END 2022-06-19 01:54 ==
LOC: DI 01:34
PROVIDERS: PCP Nurse Practitioner Family; Visit Provider Psychiatry & Neurology Neurology
DX: M54.12 Radiculopathy, cervical region (principal); R20.2 Paresthesia of skin
CPT/HCPCS: 70551; 72141

== ENCOUNTER 2022-09-19 02:24 | Outpatient (CLI) | payer BC, SELFPAY ==
--- NOTE | 2022-09-19 | DI.DEXA_ITS ---
Exam(s) XR DEXA BONE DENSITY W/WO NIMCO EXAM: XR DEXA BONE DENSITY W/WO NIMCO CLINICAL HISTORY: HYPERPARATHYROIDISM NOS, E21.3 TECHNIQUE: Routine DEXA evaluation of the lumbar spine, hip, or forearm. COMPARISON: No exams were available for comparison FINDINGS: Performed on a Hologic unit. Lateral image: No compression fracture evident. Lumbar Spine total T-score: -1.8 Hip total T-score:-1.3 Independent reading at the level of the femoral neck yields T-score of -2.0 Forearm total T-score: -1.5 IMPRESSION: Bone mineral density measures in the osteopenia range. Fracture risk is moderate. Note: Any spine fracture indicates 5x risk for subsequent spine fracture and 2x risk for subsequent h ip fracture. World Health Organization criteria for BMD interpretation classify patients: Normal...... T- Score at or above -1.0 Osteopenic... T- Score between -1.0 and -2.5 Osteoporosis... T-Score at or below -2.5
== END 2022-09-19 02:44 ==
LOC: DI 02:24
PROVIDERS: PCP Nurse Practitioner Family; Visit Provider Nurse Practitioner Family
DX: Z13.820 Encounter for screening for osteoporosis (principal); M85.89 Other specified disorders of bone density and structure, multiple sites; E21.3 Hyperparathyroidism, unspecified
CPT/HCPCS: 77080

== ENCOUNTER 2023-03-05 10:34 | Outpatient (CLI) | payer BC, SELFPAY ==
--- NOTE | 2023-03-05 07:00 | DI.RAD_ITS ---
Exam(s) XR PAIN CLINIC CERVICAL SP 2V EXAM: XR PAIN CLINIC CERVICAL SP 2V CLINICAL HISTORY: Dx: Cervical Radiculopathy TECHNIQUE: 2D and realtime digital imaging was performed. CONTRAST MATERIAL: Refer to procedure report. COMPARISON: No exams were available for comparison FINDINGS: Fluoroscopy was provided for Dr. Miller during the performance of a cervical epidural steroid injectio n. Please refer to the procedure report for complete details. Ka,r=2.96 mGy IMPRESSION:
[2023-03-05 10:44] VITALS: BP 138/81; PULSE 64; RESP 20; TEMP 36.3; O2SAT 99
[2023-03-05] MEDS: Omnipaque 240 MG/ML 50 ML BTL IJ (11:24)
[2023-03-05] MEDS: Dexamethasone Sod. Phos./Pres-Free 10 MG/ML VIAL IJ (11:25)
[2023-03-05 11:30] VITALS: BP 113/62; PULSE 75; RESP 14; O2SAT 95
--- NOTE | 2023-03-05 12:33 | PDOC.PAIN_ITS ---
Date of service: 03/05/23 Time of Service: 11:00 Pain Managment Procedure Note Procedure Note Procedure Note: Procedure Note Cervical Interlaminar Epidural Steroid Injection Date of Service: March 05, 2023 Patient:Carmelina Trujillo? Provider:? Miroslava Miller DO, MPH Carmelina has been referred to the [facility] for cervical epidural steroid injection.? Pre-operative diagnosis: Cervical Radiculopathy Post-operative diagnosis: Same Pre-procedure pain: VAS= 8/10 Comments: I previously evaluated her in the clinic on 11/08/2022. She had an MRI of the cervical spine on 06/19/2022 which shows a C5-6 disc protrusion with foraminal compression. Carmelina was interviewed and the medical record was reviewed.? There were no med ical, pharmacologic, radiographic or other structural contraindications to attempting fluoroscopically guided cervical interlaminar epidural steroid injection.? Risks, potential side effects, indications, and potential benefits of the procedure were reviewed with Carmelina.? Questions and concerns were addressed.? After it was clear that the patient was fully informed about the procedure, the printed consent form was signed by the patient and myself.? Carmelina was placed in the prone position on the fluoroscopy table and automated blood pressure cuff as well as pulse oximeter was applied. A standard time-out procedure was performed. The skin entry point for entering the epidural space by a midline C7-T1 interlaminar approach was identified under fluoroscopy and marked.? The skin entry point was thoroughly cleaned with Chlorhexadine preparation and the skin was draped.? Next a mixture of 2 mls of 1% lidocaine was infiltrated into the area of the planned skin entry point and underlying subcutaneous tissues.? Next an 18 gauge Tuohy needle was placed under fluoroscopic guidance and with loss of resistance technique into the epidural space utilizing multiple AP and 55 degree contralateral fluoroscopic views.? Upon correct needle placement and loss of resistance, there were no paresthesia or return of blood or CSF through the needle. Next 1 mls of preservative-free Omnipaque 240 was injected with clear epidural spread in the A/P and oblique views. Next, a solution of 15 mg of preservative-free Dexamethasone was injected. This was followed with 1ml of preservative-free normal saline. No unusual discomfort was expressed by Carmelina. The needle was withdrawn without difficulty. (49 mls of Omnipaque and 5 mg of Dexamethasone was wasted) Carmelina was observed and was without hemodynamic, neurologic, or allergic reactions.? Fluoroscopic images were digitally archived. Carmelina's vital signs were stable throughout the procedure and were as recorded in the doc flowsheet by the nursing staff.? If given, dosages of intravenous drugs for anxiolysis and analgesia were documented in MAR. Follow up plans and appointments were discussed with Carmelina.? Post procedure instruction was given as documented in nursing documentation and having met discharge criteria, Carmelina [facility]. A retrospective review of interlaminar cervical ESIs found that approximately two-thirds of patients with symptomatic cervical radiculopathy from disc herniation were able to avoid surgery for up to 1 year with treatment. Success rate was improved with earlier injection (< 100 days from diagnosis). Angeline EL, Essie V, Moon L, Sheba AN, Chi ABEL. Cervical epidural steroid injections for symptomatic disc herniations. J Spinal Disord Tech. 2006 December;19(3):183-6. ? COMMENTS: No apparent complications. Post-procedure pain: VAS= 6/10. Carmelina to contact [facility] as needed. If at least 50% improvement in pain and/or function for at least 3 months is achieved, this procedure can be repeated. I personally completed the entire procedure. MIROSLAVA MILLER DO, MPH ABPMR-subspecialty board certification in Pain Medicine [facility]
== END 2023-03-05 10:35 | disposition home or self-care (01) ==
LOC: PC 10:35
PROVIDERS: PCP Nurse Practitioner Family; Visit Provider Preventive Medicine Occupational Medicine
DX: M54.12 Radiculopathy, cervical region (principal)
CPT/HCPCS: 62321; 72040; Q9967

== ENCOUNTER 2023-04-30 17:55 | Outpatient (REF) | payer BC, SELFPAY ==
[2023-04-30 15:20] LABS: Abs Immature Grans 0.01 10^3/uL (0.0-0.06); Absolute Basophil Count 0.05 10^3/uL (0.0-0.2); Absolute Eosinophil Count 0.22 10^3/uL (0.0-0.7); Absolute Lymphocyte Count 1.48 10^3/uL (1.2-3.4); Absolute Monocyte Count 0.31 10^3/uL (0.1-0.8); Absolute Neutrophil Count 2.76 10^3/uL (1.2-6.7); Eosinophils % 4.6; HCT 41.8 % (36.0-46.0); HGB 14.1 g/dL (11.2-15.7); Immature Grans % 0.2; Lymphocytes % 30.6; MCH 30.3 pg (27.0-33.0); MCHC 33.7 % (32.0-36.0); MCV 90 fL (80-95); MPV 11.5 fL (8.0-11.0); Monocytes % 6.4; Neutrophils % 57.2; Platelet Count 240 10^3/uL (130-400); RBC 4.65 10^6/uL (3.93-5.22); RDW 12.8 % (11.7-14.6); WBC 4.83 10^3/uL (4.4-10.8)
[2023-04-30 15:41] LABS: Hemoglobin A1C 5.8 % (<5.7)
[2023-04-30 16:02] LABS: ALT 32 U/L (14-59); AST 25 U/L (15-37); Albumin 4.1 g/dL (3.4-5.0); Alkaline Phosphatase 137 U/L (46-116); Anion Gap 11.9 mmol/L (3-11); BUN 13 mg/dL (7-18); Bilirubin, Total 0.6 mg/dL (0.2-1.0); CO2 22.1 mmol/L (21.0-32.0); CREATININE 0.6 mg/dL (0.55-1.02); Calcium 11.1 mg/dL (8.5-10.1); Calculated LDL 127 mg/dL (<100); Chloride 104 mmol/L (98-107); Cholesterol 220 mg/dL (<200); Estimated GFR 108.61 (mL/min/1.73m2); FREE T4 1.01 ng/dL (0.76-1.46); Glucose 94 mg/dL (74-106); HDL Cholesterol 81 mg/dL (40-60); Sodium 138 mmol/L (136-145); Total Protein 7.4 g/dL (6.4-8.2); Triglyceride 61 mg/dL (<150)
[2023-04-30 23:09] LABS: Parathyroid Hormone,Intact 134 pg/mL (19-88)
== END 2023-04-30 17:56 | disposition home or self-care (01) ==
LOC: NCHCN 17:55
PROVIDERS: PCP Nurse Practitioner Family; Visit Provider Nurse Practitioner Family
DX: E21.3 Hyperparathyroidism, unspecified (principal); L65.9 Nonscarring hair loss, unspecified; Z13.220 Encounter for screening for lipoid disorders; R73.03 Prediabetes
CPT/HCPCS: 80053; 80061; 83036; 83970; 84439; 84443; 85025

== ENCOUNTER 2023-05-28 10:44 | Outpatient (REF) | payer BC, SELFPAY ==
--- NOTE | 2023-05-28 10:50 | PAPFT_PTH ---
PATIENT: Carmelina Sierra LOC: [facility] U#:[id number] AGE/SX: 52/F ROOM: RE05/28/[address]: Jeni Menchaca MD : 1970 BED: DIS: 05/28/2023 SPEC #: [id number] RECD: 05/28/23 13:00 STATUS: PARESH REQ #: [id number] ANGELIA: 05/28/23 10:[address]: Jeni Menchaca DEPT: [facility] Cytology RECD BY: Indira Gao ENTERED: 05/28/23 13:00 SP TYPE: PAPFT OTHR DR: RUPAL MAI Tissues: 1 - CX/ENDOCX FOR PAP SMEARS Procedures: PAP THIN PREP/UVM Screening HPV DNA PROBE Comments: [id number]
== END 2023-05-28 10:45 | disposition home or self-care (01) ==
LOC: LBN 10:44
PROVIDERS: PCP Nurse Practitioner Family; Visit Provider Obstetrics & Gynecology
DX: R30.0 Dysuria (principal); Z12.4 Encounter for screening for malignant neoplasm of cervix; Z11.51 Encounter for screening for human papillomavirus (HPV)
CPT/HCPCS: 87077; 88142; 87086; 87186; 87624

== ENCOUNTER 2023-09-05 15:02 | Outpatient (REF) | payer BC, SELFPAY ==
--- OUTSIDE RECORDS SUMMARY | 2023-09-05 15:04 | XMS_ITS | Continuity of Care Document ---
Author Name Unknown Organization [facility] or [facility] Address [address] [address] Care Team Providers Care Assistant Construction Superintendent Name Role Phone Juilta Bojorquez Primary Care Physician Encounter [facility] [id number] Date(s): 07/16/23 - 07/16/23 [facility] [address] [place] [address] Encounter Diagnosis Snoring(Discharge Diagnosis) - 07/11/23 Insomnia(Discharge Diagnosis) - 07/16/23 Discharge Disposition: Home or Self Care Attending Physician: Estela Morocho HYPERBARIC NURSE Allergies, Adverse Reactions, Alerts Substance Reaction Severity Status penicillins Unknown Active sulfa drugs Unknown Active Food preservatives 1 Unknown Active 1Kale Assessment and Plan Future Appointments Medications Calcium with Vitamin D and K oral tablet, chewable 0 Refill(s) Start Date: 06/20/23 Status: Ordered Multivitamins and Minerals 0 Refill(s) Start Date: 06/20/23 Status: Ordered nystatin 100,000 units/g topical cream 0 Refill(s) Start Date: 06/20/23 Status: Ordered Problem List Condition Confirmation Course Effective Dates Status Health Status Informant Elevated alkaline phosphatase level Confirmed Active BMI 30.0-30.9,adult Confirmed Active Generalized anxiety disorder Confirmed Active H/O hyperparathyroidism Confirmed Active Hx of migraine headaches Confirmed Active H/O solar lentigo Confirmed Active History of sleep disorder Confirmed Active Hypercalcemia Confirmed Active Insomnia Confirmed Active Hair loss Confirmed Active Cervicalgia Confirmed Active Paresthesia Confirmed Active Screening for lipid disorders Confirmed Active Screening for colon cancer Confirmed Active Prediabetes Confirmed Active Vaginal itching Confirmed Active Frequent UTI Confirmed Active Vital Signs Most recent to oldest [Reference Range]: 1 Peripheral Pulse Rate [60-100 bpm] 55 bp m *LOW* (07/16/23 1:01 PM) Blood Pressure [90-140/60-90 mmHg] 110/7 2mmHg (07/16/23 1:01 PM) Mean Arterial Pressure, Cuff [70-110 mmH g] 85 mmHg (07/16/23 1:01 PM) Weight 74.84 kg (07/16/23 1:01 PM) Weight Measured (lbs) 164.994 lb (07/16/23 1:01 PM) Weight Dosing 74.840 kg (07/16/23 1:01 PM) Height 157.28 cm (07/16/23 1:01 PM) Height/Length Measured (inches) 61.92 in ch (07/16/23 1:01 PM) BSA Measured 1.81 m2 (07/16/23 1:01 PM) Body Mass Index 30.25 kg/m2 (07/16/23 1:01 PM) Neck Circumference 12.75 inch (07/16/23 1:01 PM) Social History Social History Type Response Tobacco Never tobacco user T obacco Use:. Sex Physician Outpatient Note * Estela Morocho HYPERBARIC NURSE: PERFORM Event Display: Office Clinic Note Physician Authored Date: [id number] CARMELINA AGUIAR :1970 Age:52 years Sex:Female Visit Date:07/16/2023 Primary Care Physician: Julita Bojorquez NP History of Present Illness Carmelina Aguiar is seen at the request of Julita Bojorquez NP for evaluation of snoring and fatigue. ?? Carmelina has a medical history to include anxiety, hyperparathyroidism, prediabetes, obesity, and headaches. ?? Labs 04/30/2023 CMP Ca 11.1, alk phos 137. TSH and free T4 wnl, A1C 5.8%, CBC wnl. ?? Carmelina??feels??the biggest problem with sleep is??waking choking/breathing issue.??This has been going on for many years. She typically goes to bed at??9 pm and it takes??60 minutes to fall asleep (she reads for the hour then falls right to sleep).??She wakes up??1 time a night from??unknown reason??It takes??60 minutes to get back to sleep, sometimes she lays in bed and other times she gets out of bed and returns when feeling tired. This happens several nights a week.??She gets up at??6 am to start the day.??She does not take naps.??She sleeps with someone. She??has no??disturbances to sleep. ?? Quality of sleep most nights is perceived as poor. ?? Level of daytime alertness is alert to low energy. ?? NEUROCOGNITIVE??SYMPTOMS: Has not noted poor or worsening memory. Does not have short concentration. Does not have irritability. Does not have anxiety. Does not have depression. ?? INSOMNIA SYMPTOMS: Does not have an active mind when trying to sleep. Does not have stressful or upsetting thoughts that keep them from falling asleep. Does not watch the clock often during the night. Does worry about getting a good night of sleep. ?? BREATHING SYMPTOMS: Does not snore. Does not stop breathing during sleep. Does not struggle to breathe/gasp while sleeping. Does feel like they are choking or throat is closing during sleep. Does not breathe through mouth in sleep. Does not have nasal congestion during the night. ?? MOVEMENT SYMPTOMS: Does not toss and turn at night. Does not have messy sheets after sleep. Does not have leg or arm jerks in sleep or prior to sleep. Does not have aching, restless or crawling feelings in legs at night. Does not have a hard time keeping legs still when trying to rest or sleep. Does not get muscle cramps in legs at night. Does not have sleep walking or talking. ?? DREAM SYMPTOMS: Does not often have nightmares that interfere with sleep. Does not dream of drowning or suffocating. Does not start to dream shortly after falling asleep. Does not see dreams in the room even when awake. Does not see or hear things that aren't really there when falling asleep or waking up. Does not see things in the road when driving that aren't really there. Has not had someone see them act out dreams while sleeping. Has not accidentally injured self in sleep when dreaming. ?? WEAKNESS SYMPTOMS: Does not feel limp, lose strength or fall asleep when angry, surprised or laughing. Does not have leg, arm or face weakness when upset. Does not have episodes of being unable to move when waking up. ?? DRIVING SYMPTOMS: Has not nearly fallen asleep when driving. Has not had an accident related to drowsy driving or not paying attention. Does not forget the last few minutes or miles driven. Does not drive out of [place] line or go onto shoulder when driving. Has not had a passenger tell them they look sleepy when driving. ?? ESS today 0/24 Riddle Score 2/3?? Review of Systems headaches (Occasionally wakes with these), neck pain. Weight gain of 20 lbs in a couple of years. No night sweats, nocturnal reflux, or nocturia. Physical Exam Vitals & Measurements HR:??55??(Peripheral)?? BP:??110/72?? SpO2:??97%?? HT:??157.28??cm?? WT:??74.84??kg?? BMI:??30.25?? BSA:??1.81?? GENERAL: answers questions appropriately, well groomed, over weight. HEAD: normocephalic and atraumatic. EYES: non icteric NOSE: open nasal passages, septum midline, no polyps. MOUTH: moist mucous membranes, modified mallampati score 3, tonsils without hypertrophy, lateral wall narrowing grade 3, Tongue scalloping is noted. NECK: Supple without palpable lymph nodes. LUNGS: CTA all fitzpatrick. Good air movement throughout. CARDIO: RRR without murmur, gallop or thrill. ABDOMEN: Soft and non tender with + bowel sounds. MUSCULOSKELETAL: good ROM all extremities, no edema. NEURO: alert and oriented, normal gait. PYSCH: normal mood and affect. CUTANEOUS: no overt lesions or rashes.?? Clinic Assessment/Plan 1.??Snoring??R06.83 Carmelina has snoring, morning headaches??and fatigue with a Riddle score of 2/3 indicating a high likelihood of NICK. She has a very narrow upper airway on exam and retrognathia which increases risk of NICK.??I discussed the pathophysiology of obstructive sleep apnea and the potential consequences of untreated NICK including how it relates to her symptoms and comorbidities. I ordered a polysomnogram and discussed what will take place the night of the sleep study. HST also discussed. She is advised that Ambien may be offered the night of the sleep study if needed. She is advised this may cause lingering sedation and??she should not drive for at least??seven hours after taking and caution should be used if getting up at night.??I will see her back to review the results as soon as they are available. I provided greater than 40 minutes in the care of this patient, more than half the time was spent in [id number] counseling. Actions: 810 SL Diagnostic PSG, 07/16/23, Future Order, Snoring Insomnia COMPLETED - [id number] Office Consultation, Level 4, 07/16/23 12:58:00 EST, Snoring Insomnia FUTURE - Follow-Up Appointment Request [facility], *Est. 08/27/23 +/- 7 days, Future Order, In [facility] ?? 2.??Insomnia??G47.00 Most nights she reports it takes an hour to get to sleep and she wakes once a night and feels it takes an hour or more??to get back to sleep. She is spending nine hours in bed. She took melatonin in the past which worked short term than stopped working. She is not napping and last caffeine is around 2 pm. Actions: 810 SL Diagnostic PSG, 07/16/23, Future Order, Snoring Insomnia COMPLETED - [id number] Office Consultation, Level 4, 07/16/23 12:58:00 EST, Snoring Insomnia FUTURE - Follow-Up Appointment Request [facility], *Est. 08/27/23 +/- 7 days, Future Order, In [facility] ?? Problem List/Past Medical History Ongoing BMI 30.0-30.9,adult Cervicalgia Elevated alkaline phosphatase level Frequent UTI Generalized anxiety disorder H/O hyperparathyroidism H/O solar lentigo Hair loss History of sleep disorder Hx of migraine headaches Hypercalcemia Insomnia Paresthesia Prediabetes Screening for colon cancer Screening for lipid disorders Vaginal itching Historical No qualifying data Medications What When Instructions Unchanged multivitamin with minerals (Calcium with Vitamin D and K oral tablet, chewable) Unchanged multivitamin with minerals (Multivitamins and Minerals) Unchanged nystatin topical (nystatin 100,000 units/ g topical cream) Allergies Food preservatives penicillins sulfa drugs Social History Alcohol Current, 1-2 times per week Electronic Cigarette/Vaping Electronic Cigarette Use: Never. Home/Environment Living situation: Home/Independent. Nutrition/Health Caffeine intake amount: 2 caff drinks a day. Substance Use Never Tobacco Never tobacco user Tobacco Use:. Electronically Signed on 07/16/23 01:35 PM Estela Morocho NP Patient Care team information Care Team Personnel Name: Julita Bojorquez NP Position: No Access Member Role: Primary Care Physician Address: Address: [address] [place] [facility], [place] [address]
--- OUTSIDE RECORDS SUMMARY | 2023-09-05 15:04 | XMS_ITS | Continuity of Care Document ---
Author Name Unknown Organization [facility] Address [address] [place] [address] Care Team Providers Care Styrene Dehydration Reactor Operator Name Role Phone Julita Bojorquez Primary Care Physician Encounter [facility] Date(s): 05/14/23 - 05/14/23 [facility] [address] [place] [address] Patient Care team information Care Team Personnel Name: Julita Bojorquez SOLUTION DESIGN ENGINEER Position: No Access Member Role: Primary Care Physician Address: Address: [address] [place], [place] [address]
--- OUTSIDE RECORDS SUMMARY | 2023-09-05 15:04 | XMS_ITS | Continuity of Care Document ---
Author Name Unknown Organization [facility] Address [address] [place] [place] [address] Care Team Providers Care Medical Assistant Dermatology Name Role Phone Julita Bojorquez Primary Care Physician [facility] [id number] Date(s): 07/18/23 - 07/18/23 [facility] [address] [place] [address] Discharge Disposition: Home Allergies, Adverse Reactions, Alerts Substance Reaction Severity [...] itching Confirmed Active Frequent UTI Confirmed Active Social History Social History Type Response Tobacco Never tobacco user T obacco Use:. Sex Patient Care team information Care Team Personnel Name: Julita Bojorquez PSYCH ARNP Position: No Access Member Role: Primary Care Physician Address: Address: [address] [place], [place] [address]
--- OUTSIDE RECORDS SUMMARY | 2023-09-05 15:04 | XMS_ITS | Continuity of Care Document ---
Author Name Unknown Organization [facility] Address [address] [place] [address] Care Team Providers Care Manager Payer Name Role Phone Julita Bojorquez Primary Care Physician [phone] Encounter [facility] [id number] Date(s): 07/16/23 - 07/16/23 [facility] [address] [place] [address] Discharge Disposition: Home Allergies, Adverse Reactions, Alerts [...] information Care Team Personnel Name: Julita Bojorquez MECHATRONICS TECHNICIAN Position: No Access Member Role: Primary Care Physician Address: Address: [address] [place], [place] [address]
[2023-09-05 15:57] LABS: Vitamin D 25 Total 24.9 ng/mL (30-100)
== END 2023-09-05 15:03 | disposition home or self-care (01) ==
LOC: NCHCN 15:02
PROVIDERS: PCP Nurse Practitioner Family; Visit Provider Nurse Practitioner Family
DX: E21.3 Hyperparathyroidism, unspecified (principal)
CPT/HCPCS: 82306

== ENCOUNTER 2023-12-17 09:11 | Day surgery (SDC) | payer BC, SELFPAY ==
--- NOTE | 2023-12-16 19:40 | W.PM.DSUDISC ---
Date of service: 12/17/23 Time of Service: 10:29 Discharge Plan Disposition Patient Disposition: Home Condition: Good Discharge Details Reason For Visit: screening colonoscopy Attending Provider: Juan Stack Primary Care Provider: Julita Bojorquez Home Meds and New Rx's Prescriptions: Continued ibuprofen 200 MG capsule 400 mg PO DAILY PRN multivitamin with minerals Tablet 1 tab PO DAILY calcium carbonate-vitamin D3 [Calcium 600 with Vitamin D3] 600 mg-12.5 mcg (500 unit) capsule 1 cap PO DIRECTED Discontinued bisacodyl [Dulcolax (bisacodyl)] 5 mg tablet,delayed release (DR/EC) 5 mg PO ONCE Qty: 4 0RF Rx Instructions: Colonoscopy Bowel Prep- Per Instructions polyethylene glycol 3350 17 gram/dose powder 238 g PO ONCE Qty: 238 0RF Rx Instructions: Colonoscopy Bowel Prep- Per Instructions Discharge Instructions Additional Instructions: Carmelina, we were able to complete your colonoscopy today without any issues. Your prep was excellent, and I could see everything just fine. Everything looks very normal. I did not see any signs of polyps, tumors, or anything to worry about. Absent any other significant risk factors, I recommend a follow-up screening colonoscopy in 10 years. If you have any changes in the meantime or have any questions, please do not hesitate to be in touch. 1. If tolerated, consume a soft, low fiber diet for 1-2 days. 2. Do not drive, drink alcohol, operate machinery, make critical decisions, or do activities that require coordination or balance for 24 hours. 3. Because air was put into your colon during the procedure, expelling air from your rectum (passing gas or farting) is normal. 4. You may not have a bowel movement for 1-3 days because of the colonoscopy prep. This is normal. 5. Go directly to the emergency room if you notice any of the following: Develop chills (warm to touch), or if you have a thermometer and your temperature is above 101 Difficulty breathing or difficultly swallowing Persistent vomiting Severe abdominal pain, other than gas cramps Severe chest pain Black, tarry stools Any bleeding ? exceeding one tablespoon 6. Call your physician if the site where your intravenous was started becomes red, swollen, painful, and warm to touch. 7. Your physician has reviewed your pre-procedure medications. Please continue to take those medications as previously ordered. You will be given specific information/education regarding any changes to your medications before leaving. Activity:: Activity as Tolerated Diet:: As Tolerated Discharge Orders Discharge Orders: Discharge Order (Routine); Ordered 12/16/23 Ordered By: Juan Stack DS: Diagnosis Discharge Diagnosis (1) Encounter for screening colonoscopy: Status: Acute Asessment and Plan: Negative screening colonoscopy; based on history, recommend 10-year follow-up
--- NOTE | 2023-12-16 19:41 | W.COLOREPORT ---
Date of service: 12/17/23 Time of Service: 10:30 Colonoscopy Report Date of procedure: 12/17/23 Pre-op diagnosis general: screening colonoscopy Post-op diagnosis procedure note: other (Negative screening colonoscopy) Procedure: colonoscopy Surgeon: Juan Stack Anesthesia Type: General:No Airway Estimated blood loss (mL): 0 Pathology: none sent Complications: None Disposition: same day Indications: Carmelina is a 53 year old woman who needs a screening colonoscopy Prep: Miralax/Dulcolax Procedure Start Time: 10:10 Procedure End Time: 10:22 Retraction Time: 5 Findings: Negative screening colonoscopy Procedure Description: After the induction of monitored anesthetic care, and with the patient in left lateral decubitus position, I began by performing an external anorectal exam.? Perineum and skin were normal, as was the anal verge.? There was no evidence of external hemorrhoids.? Next, I performed a digital rectal exam.? I did not appreciate any abnormal findings.? Next, I advanced a colonoscope into the rectal vault.? I performed retroflexion.? This looked normal.? Using insufflation, I then advanced the colonoscope beyond the rectal folds and into the sigmoid colon before advancing towards the cecum.? The quality of the prep was outstanding.? The scope was noted to be in the cecum by identification of the ileocecal valve and appendiceal orifice.? I then began withdrawing the colonoscope using repeated irrigation as necessary for full evaluation of the colonic mucosa. ?Once the scope was withdrawn to the level of the rectum, great care was taken to examine portions of the rectal folds.? I did not see any signs of tumors, adenomatous polyps, or any other worrisome pathology. Finally, the scope was withdrawn and the patient was brought to the same-day surgery recovery unit as the anesthetic wore off. ?The findings and instructions were shared with the patient prior to discharge. [place] Bowel Prep [place] Bowel Prep Right Colon: 3 Left Colon: 3 Transverse Colon: 3 Total Score: 9
--- NOTE | 2023-12-17 09:07 | ANES.PREOP_ITS ---
General Info Date of Service Date Performed: 12/17/23 Height: 5 ft 2 in Weight: 74.843 kg Body Mass Index (BMI): 30.2 Surgical Procedure: Operation Date: 12/17/23 10:35 Proposed Procedure Side Surgeon paul Stack MD Meds Allergies and Home Medications Allergies Allergy/AdvReac Type Severity Reaction Status Date / Time Sulfa (Sulfonamide Allergy Intermediate Skin Rash Verified 12/17/23 09:39 Antibiotics) Penicillins Allergy Skin Rash Verified 12/17/23 09:39 sulfite Allergy Skin Rash Verified 12/17/23 09:39 food (kale) Allergy Severe Hives Uncoded 12/17/23 09:39 Home Medication Medication Instructions Recorded ibuprofen 200 mg capsule 400 mg PO DAILY PRN 10/20/15 calcium carbonate 600 mg-vitamin 1 cap PO DIRECTED 06/15/22 D3 12.5 mcg (500 unit) capsule (Calcium 600 with Vitamin D3) multivitamin with minerals 1 tab PO DAILY 06/15/22 Current Visit Medications: Current Medications Generic Name Dose Route Start Last Admin Trade Name Jamesq PRN Reason Stop Dose Admin Hyoscyamine Sulfate 0.125 mg 12/16/23 19:42 Hyoscyamine 0.125 Mg Sl/Oral/Chew SL 01/15/24 19:41 DIRECTED PRN Ringer's Solution 1,000 mls @ 80 mls/hr 12/17/23 06:00 IV 12/17/23 23:59 INFUSION CHRIS IV Miscellaneous Supplies 1 each 12/17/23 06:00 Iv Access IV 12/17/23 23:59 DIRECTED CHRIS Ondansetron HCl 4 mg 12/16/23 19:42 Ondansetron 4 Mg/2 Ml Vial IVP 01/15/24 19:41 Q4H PRN PRN Nausea / Vomiting Sodium Chloride 0 ml 12/17/23 06:00 Normal Saline Flush 10 Ml Syr IV 12/17/23 23:59 PRN PRN Sodium Chloride 0 ml 12/17/23 06:00 Normal Saline 10 Ml Vial IJ 12/17/23 23:59 DIRECTED PRN Sterile Water 0 ml 12/17/23 06:00 Water,Injection,Sterile 10 Ml Vial IJ 12/17/23 23:59 DIRECTED PRN PFSH Active Problems Active Problems: Problem Status Onset Code Encounter for screening colonoscopy Z12.11 Sleep disorder G47.9 Chronic bladder pain R39.82 Medical History Medical History (Updated 12/16/23 @ 19:40 by Juan Stack MD) Hypercalcemia Hair loss Hyperparathyroidism Solar lentigo Pre-diabetes Sciatica of left side (10/20/15) Cervical radiculopathy Left hand paresthesia Left leg paresthesias Menorrhagia Headache Generalized anxiety disorder History of frequent urinary tract infections Cervicalgia Elevated alkaline phosphatase level BMI 30.0-30.9,adult Surgical History Surgical History S/P appendectomy Hx of section Tobacco Smoking/Tobacco Use Status: Never Alcohol Alcohol Intake: current Alcohol intake frequency: a few times a month Alcohol type: wine Substance Use Substance use: Rarely Substance use type: marijuana Prental History History 4 Para 2 Hx # Term Pregnancies Multiple births Hx # Pregnancies Ectopic pregnancies AB induced 1 Hx Number of Living Children AB spontaneous 1 Past Pregnancies Del. Date GA/Weeks # Preg Succ Route Wgt Sex Labor Lgth Anesth esia Location Prov [facility] 04/18/02 Yes 2721.554 g Female [place], [place] 01/07/05 Yes 2721.554 g Male [place], [place] Vital Signs and Lab Results Vital Signs Most Recent Vital Signs in EMR: Temp Pulse Resp BP Pulse Ox 36.5 C 61 16 111/61 96 12/17/23 09:14 12/17/23 09:14 12/17/23 09:14 12/17/23 09:14 12/17/23 09:14 Lab Results Blood Type / Crossmatch: No Data to Display Complete Blood Count: No Data to Display Complete Metabolic Panel: No Data to Display Liver Function Panel: No Data to Display Coagulation Panel: No Data to Display Cardiac Panel: No Data to Display Arterial Blood Gas: No Data to Display Venous Blood Gas: No Data to Display Pancreas Panel: No Data to Display Thyroid Panel: No Data to Display Infectious Disease: No Data to Display Blood Cultures: No Data to Display Toxicology Panel: No Data to Display Panel: No Data to Display Anesthesia Assessment and Plan Anesthesia History Personal History: No History of Anesthesia Complications Family History: No Family History of Anesthesia Complications Exercise Tolerance Exercise Tolerance: Metabolic Equivalents>4 Cardiac & Pulmonary Exam Cardiac Exam: Normal S1/S2 Heart Sounds Pulmonary Exam: Clear Bilateral Breath Sounds Implantable Cardiac Device Does patient have a Pacemaker or an ICD?: No Airway Exam Known Difficult Airway: No Mallampati Class: 4 Mouth Opening: Narrow (< 3cm) Thyromental Distance: Less than 3 cm Neck Range of Motion: Limited ROM (today due to pain. ) Neck Circumference: Normal Teeth Condition: Normal Dentition ASA Classification ASA Score: ASA 2 Emergency Case?: No NPO Status NPO Status: NPO Clears >2 hours, Solids >8 hours Status Status: Not Relevant due to Medical History Anesthesia Plan Resuscitation Status: Full Code Anesthesia Technique: General Anesthesia Airway Planned: Natural Airway Monitors Used: Standard Monitors Preoperative Comments:: 53 yo female for colo. Sig PMHx: cervical radiculopathy (neck is very sore today, does not want to move through full range of motion. Denies any numbness or tingling with movement past her range of painless motion), anxiety, never smoker, occ EtOH/cannabis.
[2023-12-17 09:10] VITALS: BMI 30.2
[2023-12-17 09:14] VITALS: BP 111/61; PULSE 61; RESP 16; TEMP 36.5; O2SAT 96
[2023-12-17] MEDS: Lactated Ringers 1,000 ML 80 ML IV (09:46)
[2023-12-17 10:25] VITALS: BP 102/77; PULSE 63; RESP 16; TEMP 36.2; O2SAT 97
--- NOTE | 2023-12-17 10:43 | W.ANESPOSTOP ---
Postoperative Evaluation Date, Time and Location Date Performed: 12/17/23 Time Performed: 10:43 Patient Location: Day Surgery Unit Vital Signs Most Recent Imported Vital Signs: Most Recent Vital Signs Temp Pulse Resp BP Pulse Ox 36.2 C L 63 16 102/77 97 12/17/23 10:25 12/17/23 10:25 12/17/23 10:25 12/17/23 10:25 12/17/23 10:25 Pain Score Most Recent Pain Score: Most Recent Pain Score Pain Level 0 12/17/23 10:25 Assessment Mental Status: Awake (Alert & Oriented to Patient Baseline) Airway and Respiratory Function: Patent airway with normal (patient baseline) respiratory exam Cardiovascular Function: Hemodynamically Stable Hydration Status: Adequately Hydrated Nausea & Vomiting: No Nausea or Vomiting Pain: Pt. Denies Any Pain Peripheral Nerve Block: Patient did not receive a nerve block
[2023-12-17 10:59] VITALS: BP 119/79; PULSE 61; RESP 16; TEMP 36; O2SAT 98
== END 2023-12-17 11:56 | disposition home or self-care (01) ==
LOC: SUR 09:11
PROVIDERS: PCP Nurse Practitioner Family; Visit Provider Surgery
PROC: 0DJD8ZZ Inspection of Lower Intestinal Tract, Via Natural or Artificial Opening Endoscopic (ICD-10-PCS; CPT 45378; principal; 2023-12-17 10:30)
DX: Z12.11 Encounter for screening for malignant neoplasm of colon (principal); M54.2 Cervicalgia
CPT/HCPCS: 45378; J2704

== ENCOUNTER 2024-10-30 14:32 | Emergency (ER) | payer BC, SELFPAY ==
[2024-10-30] VITALS (9 sets, daily range): BP systolic 124–157; BP diastolic 67–138; PULSE 57–75; RESP 11–23; TEMP 36.3; O2SAT 97–99
--- NOTE | 2024-10-30 14:30 | RT.EKG_ITS ---
APPROVED REPORT Exam: Resting ECG Reason for Exam: CHEST PAIN Patient Location: E HR:61 bpm ECG Measurements Heart Rate 61 AXIS NV 158 P 47 QRSd 78 QRS 14 QT 373 T 15 QTc 378 Conclusion Sinus rhythm 61 normal axis no stemi
[2024-10-30] MEDS: Aspirin 81 MG CHEW 324 MG CH (14:51)
[2024-10-30 15:18] LABS: Abs Immature Grans 0.02 10^3/uL (0.0-0.06); Absolute Basophil Count 0.04 10^3/uL (0.0-0.2); Absolute Eosinophil Count 0.23 10^3/uL (0.0-0.7); Absolute Lymphocyte Count 1.44 10^3/uL (1.2-3.4); Absolute Monocyte Count 0.39 10^3/uL (0.1-0.8); Absolute Neutrophil Count 3.69 10^3/uL (1.2-6.7); Basophils % 0.7 %; HCT 42.1 % (36.0-46.0); HGB 13.7 g/dL (11.2-15.7); Immature Grans % 0.3 %; Lymphocytes % 24.8 %; MCH 29.8 pg (27.0-33.0); MCHC 32.5 % (32.0-36.0); MCV 92 fL (80-95); MPV 10.2 fL (8.0-11.0); Monocytes % 6.7 %; Neutrophils % 63.5 %; Platelet Count 233 10^3/uL (130-400); RDW 12.8 % (11.7-14.6); RDW-SD 42.2 fL; WBC 5.81 10^3/uL (4.4-10.8)
[2024-10-30 15:50] LABS: ALT 26 U/L (14-59); AST 20 U/L (15-37); Albumin 3.9 g/dL (3.4-5.0); Alkaline Phosphatase 140 U/L (46-116); Anion Gap 6.7 mmol/L (3-11); BUN 15 mg/dL (7-18); Bilirubin, Total 0.6 mg/dL (0.2-1.0); CO2 28.3 mmol/L (21.0-32.0); CREATININE 0.7 mg/dL (0.55-1.02); Calcium 11.3 mg/dL (8.5-10.1); Chloride 108 mmol/L (98-107); Estimated GFR 103.35 (mL/min/1.73m2); Glucose 90 mg/dL (74-106); Potassium 3.9 mmol/L (3.5-5.1); Sodium 143 mmol/L (136-145); Total Protein 7.7 g/dL (6.4-8.2); Troponin I 5 ng/L (<or=51)
--- NOTE | 2024-10-30 16:18 | ED.GENADUL_ITS ---
Discharge Plan Disposition Patient Disposition: Home Discharge Details Clinical Impression: Jaw pain Primary Care Provider: Julita Bojorquez ED Provider: Jesús Franks Home Meds and New Rx's Prescriptions: No Action nitrofurantoin monohyd/m-cryst [Macrobid] 100 mg capsule 100 mg PO ONCE Qty: 30 4RF Rx Instructions: Take 1 tab after intercourse must administer with a meal/food estradiol 0.01 % (0.1 mg/gram) cream 0.25 g vaginal DAILY Qty: 42.5 4RF Rx Instructions: Apply a pea-sized amount around the urethra/vaginal opening. Use nightly x2wks. Then decrease to 2-3x/week ibuprofen 200 MG capsule 400 mg PO DAILY PRN multivitamin with minerals Tablet 1 tab PO DAILY calcium carbonate-vitamin D3 [Calcium 600 with Vitamin D3] 600 mg-12.5 mcg (500 unit) capsule 1 cap PO DIRECTED Discharge Instructions Additional Instructions: Lab work today is unremarkable and there is no elevation in your troponin enzyme. I doubt that these symptoms are due to your heart please follow up your PCP HPI General Date/Time Provider Initiated Documentation: 10/30/24 14:39 . Limitations to Documentation: no limitations . Information obtained by: patient . HPI Narrative: 54-year-old female without significant past medical history presents for evaluation of jaw pain. She reports that sometime overnight while she was asleep she woke up with severe left-sided jaw pain. The pain was localized to her upper teeth and was sharp. She states that she maybe had some awareness of some heart beating, but no pain in her chest, diaphoresis, nausea vomiting or shortness of breath. She states that she got up to turn off the hallway light and went back to sleep. This morning she did not have any symptoms when she woke up. She states that throughout the day she has been thinking that he was a little bit strange that she had the symptoms and she contacted her PCP who recommended that she come to the emergency department Related Data Home Medications ?Medication ?Instructions ?Recorded ?Confirmed ibuprofen 200 mg capsule 400 mg PO DAILY PRN 10/20/15 06/03/24 calcium 600 mg (as 1 cap PO DIRECTED 06/15/22 06/03/24 carbonate)-vitamin D3 12.5 mcg (500 unit) capsule (Calcium with Vit D3) multivitamin with minerals 1 tab PO DAILY 06/15/22 06/03/24 estradiol 0.01% (0.1 mg/gram) 0.25 g vaginal DAILY #42.5 grams 06/03/24 06/03/24 vaginal cream nitrofurantoin 100 mg PO ONCE #30 caps 06/03/24 06/03/24 monohydrate/macrocrystals 100 mg capsule (Macrobid) Previous Rx's ?Medication ?Instructions ?Recorded estradiol 0.01% (0.1 mg/gram) 0.25 g vaginal DAILY #42.5 grams 06/03/24 vaginal cream nitrofurantoin 100 mg PO ONCE #30 caps 06/03/24 monohydrate/macrocrystals 100 mg capsule (Macrobid) Allergies Allergy/AdvReac Type Severity Reaction Status Date / Time Sulfa (Sulfonamide Allergy Intermediate Skin Rash Verified 06/03/24 15:34 Antibiotics) Penicillins Allergy Skin Rash Verified 06/03/24 15:34 sulfite Allergy Skin Rash Verified 06/03/24 15:34 food (kale) Allergy Severe Hives Uncoded 06/03/24 15:34 General Stated Complaint: Chest Pain LYNDSEY: 3 Exam Narrative Exam Narrative: Review of Systems: All systems reviewed & are unremarkable except as noted in HPI and below Well-developed, no acute distress NCAT PERRL, normal conjunctiva dental caries noted without tenderness to any of the teeth, no evidence of odontogenic abscess RRR no murmur Unlabored respiratory effort, CTAB Nondistended abdomen , soft n/t no focal neurologic deficits Course Vital Signs Vital signs: Vital Signs Temperature 36.3 C L 10/30/24 14:34 Pulse 75 10/30/24 14:34 Respiratory Rate 16 10/30/24 14:34 Blood Pressure 134/76 10/30/24 14:34 Pulse Oximetry 98 10/30/24 14:34 Temperature 36.3 C L 10/30/24 14:34 Pulse 57 L 10/30/24 15:46 Pulse 71 10/30/24 15:46 Respiratory Rate 15 10/30/24 15:46 Respiratory Effort Normal, Non-Labored 10/30/24 14:53 Respiratory Depth Normal 10/30/24 14:53 Respiratory Pattern Normal 10/30/24 14:53 Blood Pressure 136/67 10/30/24 15:46 Blood Pressure Mean 92 10/30/24 15:46 Pulse Oximetry 99 10/30/24 15:46 Oxygen Delivery Method Room Air 10/30/24 14:34 Oxygen Flow Rate 0 10/30/24 14:34 Pain Level 0 10/30/24 14:34 Lab/Test Results Lab/Test Results: Laboratory Tests Range/Units 10/30/24 15:06 WBC (4.4-10.8) 10^3/uL 5.81 RBC (3.93-5.22) 10^6/uL 4.60 Hgb (11.2-15.7) g/dL 13.7 Hct (36.0-46.0) % 42.1 MCV (80-95) fL 92 MCH (27.0-33.0) pg 29.8 MCHC (32.0-36.0) % 32.5 RDW (11.7-14.6) % 12.8 Plt Count (130-400) 10^3/uL 233 MPV (8.0-11.0) fL 10.2 Immature Gran % % 0.3 Neutrophils % % 63.5 Lymphocytes % % 24.8 Monocytes % % 6.7 Eosinophils % % 4.0 Basophils % % 0.7 Nucleated RBC % (0.0-0.3) % 0.0 Absolute Neutrophils (1.2-6.7) 10^3/uL 3.69 Absolute Lymphocytes (1.2-3.4) 10^3/uL 1.44 Absolute Monocytes (0.1-0.8) 10^3/uL 0.39 Absolute Eosinophils (0.0-0.7) 10^3/uL 0.23 Absolute Basophils (0.0-0.2) 10^3/uL 0.04 Sodium (136-145) mmol/L 143 Potassium (3.5-5.1) mmol/L 3.9 Chloride (98-107) mmol/L 108 H Carbon Dioxide (21.0-32.0) mmol/L 28.3 Anion Gap (3-11) mmol/L 6.7 BUN (7-18) mg/dL 15 Creatinine (0.55-1.02) mg/dL 0.7 Est GFR (CKD-EPI 2020) (mL/min/1.73m2) 103.35 Glucose (74-106) mg/dL 90 Calcium (8.5-10.1) mg/dL 11.3 H Total Bilirubin (0.2-1.0) mg/dL 0.6 AST (15-37) U/L 20 ALT (14-59) U/L 26 Alkaline Phosphatase (46-116) U/L 140 H Troponin I (<or=51) ng/L 5 Total Protein (6.4-8.2) g/dL 7.7 Albumin (3.4-5.0) g/dL 3.9 Medical Decision Making Emergent evaluation of jaw pain. Initial differential includes anginal variant, dental infection. Patient is asymptomatic at this time and symptoms occurred several hours ago. EKG interpreted: Sinus 61 normal axis no STEMI. Lab work was obtained, no leukocytosis or anemia. No electrolyte derangement. No elevation of troponin. Advised that the use symptoms of jaw discomfort are unlikely secondary to a cardiac etiology and recommend close follow-up with her PCP for reevaluation of any issues. Quality:SDOH Health Related Social Needs: No Data to Display PFSH All Active Problems (Updated 10/30/24 @ 16:14 by Jesús Franks MD) Jaw pain (Acute) DHEERAJ (stress urinary incontinence, female) (Acute) Fecal incontinence (Acute) Medical History (Updated 10/30/24 @ 16:14 by Jesús Franks MD) Hypercalcemia Hair loss Hyperparathyroidism Solar lentigo Pre-diabetes Sciatica of left side (10/20/15) Cervical radiculopathy Left hand paresthesia Left leg paresthesias Headache Generalized anxiety disorder History of frequent urinary tract infections Cervicalgia Elevated alkaline phosphatase level Surgical History (Updated 12/21/23 @ 10:56 by Whitney Troncoso) History of colonoscopy (~12/2023) S/P appendectomy Hx of section Family History Father Diabetes Social History (Updated 06/03/24 @ 15:43 by Mary Aguirre RN, RN) Smoking/Tobacco Use Status: Never Smoking risk assessment performed?: Yes Alcohol Intake: current Alcohol Intake frequency: a few times a month Alcohol type: wine Drug use: Occasionally Substance use type: marijuana Housing: house Number of Children: 2 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 Date GA/Weeks # Preg Succ Route Wgt Sex Labor Lgth Anesth esia Location Prov [facility] 04/18/02 Yes 2721.554 g Female [place] 01/07/05 Yes 2721.554 g Male [facility], [place]
== END 2024-10-30 16:25 | disposition home or self-care (01) ==
PROVIDERS: Emergency Provider Emergency Medicine; PCP Nurse Practitioner Family
DX: R68.84 Jaw pain (principal); K02.9 Dental caries, unspecified; E21.3 Hyperparathyroidism, unspecified
CPT/HCPCS: 36415; 80053; 93005; 99284; 84484; 85025; 93010; 99283

== ENCOUNTER 2025-03-03 01:35 | Outpatient (CLI) | payer BC, SELFPAY ==
--- NOTE | 2025-03-03 | DI.MAMMO_ITS ---
Exam(s) MAMMO SCREENING EXAM: MAMMO SCREENING CLINICAL HISTORY: screening Z12.31 TECHNIQUE: Bilateral full field digital CC and MLO mammographic images were obtained with 3D tomosynthesis and utilizing computer aided detection (CAD). COMPARISON: Comparison is made with prior examinations. FINDINGS: Masses/Architectural Distortion: No suspicious masses or areas of architectural distortion are present. Microcalcifications: No suspicious pleomorphic-type are seen. Skin Thickening/Nipple Retraction: None. IMPRESSION: 1. No significant interval change with no specific features of malignancy noted. 2. Unless there is more urgent need, screening mammography is recommended, as per [place] [employer] guidelines. BI-RADS Category 1 - Negative Breast Density - Category B - There are scattered areas of fibroglandular density. Breast density Category C or D implies that the patient has dense breast tissue. Dense breast tissue can make it harder to find cancer on a mammogram. Dense breast tissue is also associated with an increased risk of breast cancer. This information about the result of the mammogram report was provided to the patient to raise their awareness. Use this report when you speak with the patient about their risks for breast cancer, which includes their family history. At that time, you may recommend additional screening tests (Ultrasound or MRI) as these tests may add significant information. A negative radiographic report should not delay biopsy if a dominant or clinically suspicious mass is present. Up to ten percent of cancers are not identified on mammography. A negative report may reinforce clinical impression. Adenosis and dense breasts may obscure an underlying neoplasm. False positive reports average 6 to 10%. Patient will receive a letter notifying them of these results.
== END 2025-03-03 01:55 ==
PROVIDERS: PCP Physician Assistant; Visit Provider Physician Assistant
DX: Z12.31 Encounter for screening mammogram for malignant neoplasm of breast (principal); R92.323 Mammographic fibroglandular density, bilateral breasts
CPT/HCPCS: 77063; 77067

== ENCOUNTER 2025-04-30 15:12 | Outpatient (REF) | payer BC, SELFPAY ==
[2025-04-30 19:11] LABS: HCT 40.5 % (36.0-46.0); HGB 13.1 g/dL (11.2-15.7); MCH 29.1 pg (27.0-33.0); MCHC 32.3 % (32.0-36.0); MCV 90 fL (80-95); MPV 11.3 fL (8.0-11.0); Platelet Count 219 10^3/uL (130-400); RBC 4.50 10^6/uL (3.93-5.22); RDW 12.7 % (11.7-14.6); RDW-SD 41.6 fL; WBC 5.69 10^3/uL (4.4-10.8)
[2025-04-30 19:27] LABS: Hemoglobin A1C 5.5 % (<5.7)
[2025-04-30 19:38] LABS: ALT 24 U/L (14-59); AST 25 U/L (15-37); Albumin 3.8 g/dL (3.4-5.0); Alkaline Phosphatase 131 U/L (46-116); Anion Gap 9.1 mmol/L (3-11); BUN 14 mg/dL (7-18); Bilirubin, Total 0.6 mg/dL (0.2-1.0); CO2 23.9 mmol/L (21.0-32.0); Calcium 11.2 mg/dL (8.5-10.1); Calculated LDL 156 mg/dL (<100); Chloride 107 mmol/L (98-107); Cholesterol 245 mg/dL (<200); Estimated GFR 103.35 (mL/min/1.73m2); Glucose 93 mg/dL (74-106); HDL Cholesterol 66 mg/dL (>or=50); Potassium 4.3 mmol/L (3.5-5.1); Sodium 140 mmol/L (136-145); Total Protein 7.6 g/dL (6.4-8.2); Triglyceride 118 mg/dL (<150)
== END 2025-04-30 15:13 | disposition home or self-care (01) ==
LOC: NCHCN 15:12
PROVIDERS: PCP Physician Assistant
DX: Z00.00 Encounter for general adult medical examination without abnormal findings (principal)
CPT/HCPCS: 80053; 80061; 85027; 83036